=== PATIENT | male | born 1955 | race Caucasian/White ===

== ENCOUNTER 2021-08-27 10:15 | Emergency (ER) | payer OTHER, SELFPAY ==
[2021-08-27] VITALS (32 sets, daily range): BP systolic 95–117; BP diastolic 61–97; PULSE 80–108; RESP 12–29; TEMP 36.5; O2SAT 94–99
--- NOTE | 2021-08-27 10:24 | W.ED.GENAD ---
Discharge Plan Disposition Patient Disposition: HOME Condition: Stable Discharge Details Clinical Impression: Weight loss, Generalized weakness, Chronic pain Primary Care Provider: Oneal Guaman ED Provider: Dionicio Dean Home Meds and New Rx's Prescriptions: Continued lisinopril 20 mg tablet 20 mg PO DAILY 0RF glimepiride [Amaryl] 4 mg tablet 2 mg PO DAILY 0RF aspirin [Adult Low Dose Aspirin] 81 mg tablet,delayed release (DR/EC) 81 mg PO DAILY 0RF atorvastatin 40 mg tablet 40 mg PO TID 0RF hydroxyzine HCl 50 mg Tablet 50 mg PO .QHS 0RF cholecalciferol (vitamin D3) [Vitamin D3] 25 mcg (1,000 unit) Capsule 25 mcg PO DAILY 0RF oxycodone 10 mg Tablet 10 mg PO BID 0RF Discharge Instructions Instructions: Chronic Pain (ED), Weakness (ED) Additional Instructions: Work-up in the ER does not reveal any obvious emergent process but I do not have a clear source as to why you are feeling the way that you do. I was able to contact your primary care provider to make them aware of your ER visit today and work-up, and they will be happy to follow you as an outpatient. Please continue taking the medication set forth by your primary care provider and follow-up with the specialist that have been set up. Please watch for new or worsening symptoms and return to the ER for any concerns. Discharge Data Discharge Date/Time-TO BE ENTERED AT DEPARTURE: 08/27/21 13:57 Medical Decision Making This is a 65-year-old gentleman, reports past medical history of chronic pain, diabetes, hypertension, reporting just poor health worsening over the past year, ongoing chronic chest and abdominal pain back pain that radiates down to his leg, 60 pound weight gain, and this morning felt a little disoriented. Of note he has had this worked up through his primary care provider, specialist at [facility] in the ER at [facility]. Earlier this week she had his gabapentin and Metformin stop and began taking oxycodone. He did take an oxycodone this morning prior to his symptoms beginning. Prior to just 2 days ago he was narcotic na?ve I do question if some of what he was feeling this morning was secondary to his new medication. He is neurologically intact. Given his multitude of complaints, disorientation, chest, abdominal, back pain with weight loss, will obtain CT imaging of his head without contrast as well as CT imaging of his chest, abdomen, pelvis with contrast. We will also initiate a cardiac work-up including a single troponin and EKG given the duration of his symptoms. Blood glucose of 288. I was able to speak with the patient's primary care provider Dr. Brandt at 1121 who states that he does know the patient, he has had multiple vague complaints like this in his office and he is currently attempting to work them up and there is an outpatient EMG scheduled. He is participating in physical therapy and he has recently prescribed Percocet in attempt to better control his pain. He will be happy to follow him as an outpatient. Work-up in the ER including laboratory values, CT imaging were grossly unremarkable. Patient with some hyperglycemia but given his recent DC of the Metformin this is not surprising. This is being evaluated through his primary care provider office. I would not expect a glucose of 288 or 3072 presents with altered mental status. Patient with a lactate minimally elevated at 1.5, he is receiving [address] imaging is grossly unremarkable. Discussed benign work-up with patient and daughter. While we have the occluded multiple diagnoses today, I explained to them that I did not know the exact etiology of his symptoms. I did feel as though it was safe to be discharged from the ER continue his outpatient work-up. They are both comfortable with this plan and have no additional questions or concerns. He remained hemodynamically stable and neurologically intact. Strict discharge and return precautions were provided. This documentation was generated using [employer] dictation system, please disregard any oddities of phrase or misspellings. Imaging Data Radiologic Study: Attestation: I personally reviewed and interpreted this imaging study as follows: Imaging: CT Scan Radiologist's impression: Exam(s) CT CHEST/ABD/PEL W EXAM: CT CHEST/ABD/PEL W CLINICAL HISTORY: pain, 60 lb weight loss TECHNIQUE: CT examination of the chest, abdomen, and pelvis was performed with intravenous infusion of 100 cc of Omnipaque 350. COMPARISON: No exams were available for comparison FINDINGS: The lungs are clear. There is no pleural effusion seen. There is no mediastinal or hilar adenopathy. Pulmonary arteries are unremarkable with no evidence of pulmonary embolic disease. Thoracic aorta and major branches appear intact with no evidence of aneurysm or dissection. No bony abnormality seen in the thorax. The liver is normal appearance. Gallbladder and bile ducts are CT normal. No abnormality seen involving the spleen. Pancreas appears intact. The adrenals are unremarkable in appearance. The kidneys show no evidence of hydronephrosis or nephrolithiasis. Small incidental bilateral renal cysts noted. Probable left cortical renal scarring noted. Abdominal aorta and major visceral branches appear intact. No significant abdominal wall hernia seen. No significant abdominal or pelvic adenopathy. No focal bowel pathology. No evidence of appendicitis or diverticulitis. IMPRESSION: No evidence of acute process.. Radiologic Study #2: Attestation: I personally reviewed and interpreted this imaging study as follows: Imaging: CT Scan Radiologist's impression: Exam(s) CT HEAD WO EXAM: CT HEAD WO CLINICAL HISTORY: Disorientation. TECHNIQUE: Imaging Protocol: Axial computed tomography images with coronal and sagittal reformatted images were created and reviewed COMPARISON: No exams were available for comparison FINDINGS: The ventricular system is normal in appearance. No evidence of acute intracranial hemorrhage, mass effect, or midline shift. The orbital structures are unremarkable. The temporal bone structures appear intact. Calvarium: Normal. Visualized Paranasal sinuses/Mastoids: Clear. IMPRESSION: Normal cranial CT. Lab Data Lab results reviewed: Yes I reviewed the patient's lab results. Labs: Laboratory Tests Range/Units 08/27/21 08/27/21 08/27/21 10:55 10:55 10:55 WBC (4.4-10.8) 10^3/uL 6.08 RBC (4.36-5.78) 10^6/uL 4.96 Hgb (13.5-17.5) g/dL 14.8 Hct (40.0-50.0) % 43.4 MCV (80-95) fL 87.5 MCH (27.0-33.0) pg 29.8 MCHC (32.0-36.0) % 34.1 RDW (11.8-14.1) % 12.2 Plt Count (130-400) 10^3/uL 259 MPV (8.0-11.0) fL 9.5 Immature Gran % 0.2 Neutrophils % 57.7 Lymphocytes % 28.9 Monocytes % 10.7 Eosinophils % 2.3 Basophils % 0.2 Nucleated RBC % % 0 Absolute Neutrophils (1.2-6.7) 10^3/uL 3.51 Absolute Lymphocytes (1.2-3.4) 10^3/uL 1.76 Absolute Monocytes (0.1-0.8) 10^3/uL 0.65 Absolute Eosinophils (0.0-0.7) 10^3/uL 0.14 Absolute Basophils (0.0-0.2) 10^3/uL 0.01 VBG Lactate (0.6-1.4) mmol/L 1.5 H Sodium (136-145) mmol/L 136 Potassium (3.5-5.1) mmol/L 4.3 Chloride (98-107) mmol/L 100 Carbon Dioxide (21.0-32.0) mmol/L 28.5 Anion Gap (3-11) mmol/L 7.5 BUN (7-18) mg/dL 21 H Creatinine (0.70-1.30) mg/dL 0.8 Estimated GFR/1.73 m2 (mL/min/1.73m2) >= 60.00 Glucose (74-106) mg/dL 307 H Calcium (8.5-10.1) mg/dL 9.5 Total Bilirubin (0.2-1.0) mg/dL 0.3 AST (15-37) U/L 11 L ALT (16-63) U/L 23 Alkaline Phosphatase (46-116) U/L 64 Troponin I (<or=60) ng/L Total Protein (6.4-8.2) g/dL 7.0 Albumin (3.4-5.0) g/dL 3.9 Lipase (73-393) U/L 65 Urine Color (Yellow) Urine Clarity (Clear) Urine pH (5-8) Ur Specific [place] (1.005-1.025) Urine Protein (Negative) mg/dL Urine Ketones (Negative) mg/dL Urine Blood (Negative) Urine Nitrite (Negative) Urine Bilirubin (Negative) Urine Urobilinogen (Up TO 0.2) EU/dL Ur Leukocyte Esterase (Negative) Urine Glucose (Negative) mg/dL Range/Units 08/27/21 08/27/21 10:55 11:50 WBC (4.4-10.8) 10^3/uL RBC (4.36-5.78) 10^6/uL Hgb (13.5-17.5) g/dL Hct (40.0-50.0) % MCV (80-95) fL MCH (27.0-33.0) pg MCHC (32.0-36.0) % RDW (11.8-14.1) % Plt Count (130-400) 10^3/uL MPV (8.0-11.0) fL Immature Gran % Neutrophils % Lymphocytes % Monocytes % Eosinophils % Basophils % Nucleated RBC % % Absolute Neutrophils (1.2-6.7) 10^3/uL Absolute Lymphocytes (1.2-3.4) 10^3/uL Absolute Monocytes (0.1-0.8) 10^3/uL Absolute Eosinophils (0.0-0.7) 10^3/uL Absolute Basophils (0.0-0.2) 10^3/uL VBG Lactate (0.6-1.4) mmol/L Sodium (136-145) mmol/L Potassium (3.5-5.1) mmol/L Chloride (98-107) mmol/L Carbon Dioxide (21.0-32.0) mmol/L Anion Gap (3-11) mmol/L BUN (7-18) mg/dL Creatinine (0.70-1.30) mg/dL Estimated GFR/1.73 m2 (mL/min/1.73m2) Glucose (74-106) mg/dL Calcium (8.5-10.1) mg/dL Total Bilirubin (0.2-1.0) mg/dL AST (15-37) U/L ALT (16-63) U/L Alkaline Phosphatase (46-116) U/L Troponin I (<or=60) ng/L < 50 Total Protein (6.4-8.2) g/dL Albumin (3.4-5.0) g/dL Lipase (73-393) U/L Urine Color (Yellow) Yellow Urine Clarity (Clear) Clear Urine pH (5-8) 6.5 Ur Specific [place] (1.005-1.025) 1.020 Urine Protein (Negative) mg/dL Negative Urine Ketones (Negative) mg/dL Negative Urine Blood (Negative) Negative Urine Nitrite (Negative) Negative Urine Bilirubin (Negative) Negative Urine Urobilinogen (Up TO 0.2) EU/dL 0.2 Ur Leukocyte Esterase (Negative) Negative Urine Glucose (Negative) mg/dL >=1000 H ECG Data Attestation: I personally reviewed and interpreted this ECG (s) as follows: Interpretation: Sinus rhythm, ventricular rate of 82, no STEMI HPI General Mode of arrival: ambulatory. Date/Time Provider Initiated Documentation: 08/27/21 10:15. Limitations to Documentation: no limitations. Information obtained by: patient and family. HPI Narrative: This is a 65-year-old gentleman, past medical history of hypertension, diabetes, presenting to the ER today with multiple complaints that includes feeling disoriented this morning, that resolved completely. Patient states that he has had 1 year history of low back pain, chest pain, abdominal pain, weight loss of greater than 60 pounds, and he is concerned that he is going to . He is becoming increasingly frustrated because he has been seen by his primary care provider, ER in [facility], and at [facility]/specialist without any answers. He is set up for EMG for his ongoing back pain. Patient states that he saw his primary care provider earlier this week, they discontinued his Metformin and gabapentin and added on oxycodone. He denies recent illness or trauma. He denies headache, fever, neck pain, change in vision, shortness of breath, cough, nausea, vomiting, dysuria, hematuria, numbness, tingling, focal weakness. Related Data Home Medications Medication Instructions Recorded Confirmed aspirin 81 mg tablet,delayed 81 mg PO DAILY 07/28/21 08/27/21 release (Adult Low Dose Aspirin) atorvastatin 40 mg tablet 40 mg PO TID tab 07/28/21 08/27/21 glimepiride 4 mg tablet (Amaryl) 2 mg PO DAILY 07/28/21 08/27/21 lisinopril 20 mg tablet 20 mg PO DAILY 07/28/21 08/27/21 cholecalciferol (vitamin D3) 25 25 mcg PO DAILY 08/27/21 08/27/21 mcg (1,000 unit) capsule (Vitamin D3) hydroxyzine HCl 50 mg tablet 50 mg PO .QHS 08/27/21 08/27/21 oxycodone 10 mg tablet 10 mg PO BID 08/27/21 08/27/21 Allergies Allergy/AdvReac Type Severity Reaction Status Date / Time sulfamethoxazole Allergy Unverified 08/27/21 10:52 [From Bactrim] trimethoprim [From Bactrim] Allergy Unverified 08/27/21 10:52 Review of Systems Constitutional Constitutional: Denies chills, Denies fatigue, Denies fever(s), Denies headache(s) and Reports weakness (Generalized) Eyes Eyes: Denies change in vision ENT Ears, Nose, Mouth, and Throat: Denies dizziness, Denies headache(s) and Denies neck pain Cardiovascular Cardiovascular: Reports chest pain and Denies dyspnea Respiratory Respiratory: Denies cough, Denies dyspnea and Denies wheezing Gastrointestinal Gastrointestinal: Reports abdominal pain, Denies constipation, Denies diarrhea, Denies nausea and Denies vomiting Musculoskeletal Musculoskeletal: Reports back pain, Denies neck pain, Denies numbness and Denies tingling Integumentary/Breasts Skin/Breast: Denies rash Neurologic Neurologic: Denies dizziness, Denies headache(s), Denies numbness, Denies tingling and Reports weakness (Generalized) Endocrine Endocrine: Denies fatigue Hematologic/Lymphatic Hematologic/Lymphatic: Denies easy bleeding and Denies easy bruising Allergic/Immunologic Allergic/Immunologic: Denies wheezing PFSH All Active Problems Weight loss (Acute) Generalized weakness (Acute) Chronic pain (Chronic) Social History Smoking risk assessment performed?: No Alcohol Intake: never Substance use type: does not use Exam Const General: cooperative, healthy appearing, comfortable and no acute distress Orientation: alert, awake and oriented x3 HENMT Head: normal to inspection, normocephalic and atraumatic Face and sinus: normal facial exam Mouth: moist mucous membranes Eyes General: appearance normal, both eyes and all related structures Conjunctivae: conjunctivae normal Neck Neck: normal visual inspection, full ROM, trachea midline and supple Chest Chest: normal inspection of the chest and normal palpation of entire chest wall Resp Effort & Inspection: normal respiratory effort and able to speak in complete sentences Auscultation: clear to auscultation bilaterally Cardio Rate: regular rate Rhythm: regular rhythm GI Inspection: normal to inspection Palpation: soft and nontender Auscultation: normal bowel sounds Back/Spine/Pelvis Back: No back tenderness Skin General skin exam: no rashes or lesions noted Neuro General: patient alert, patient awake, patient oriented x3, moves all extremities and no focal motor deficits Cranial Nerves: CN's II-XI intact bilaterally Cognition: normal cognition Speech: speech normal Gait: normal gait Motor: muscle tone normal throughout, strength 5/5 throughout, no movement abnormalities noted and no fasciculations Sensory Exam: no sensory deficits noted Extrem General: normal to inspection, full ROM and capillary refill normal Psych Appearance: grossly normal Mental Status: mental status grossly normal
--- OUTSIDE RECORDS SUMMARY | 2021-08-27 10:47 | XMS_ITS | Encounter Summary ---
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 Brandt to reassess his progress with diabetes self-management and follow-up on his care coordination needs. Andre states, No one is helping me figure out what is going on with me. I felt this way for the past 8 months and I still don't have any answers. This author reinforced that Dr. Brandt has ordered several tests and i s trying to have Andre's CT scan and M RI orders transferred from [facility] to [facility] due to the prolonged wait time for imaging at [facility]. Andre verbalizes agreement and understanding. This author provided Bryn bird with the number to the [facility] Surgery Department and provided him with their hours of operation and advised him to call and schedule his appointment from the referral that was sent to [facility] o n 03/25/21 for further work up. Andre states that he will ask his daughter to assist him. This author praised Andre on his weight gain of 3 pounds since his last appointment and patient states that is he is wearing heavier clothing today. This author advised Andre to continue with his protein drinks and meals and patient verbalizes agreement and understanding. This author inquired about patient' s progress with diabetes self-management and Andre reports that his blood sugars are running 137-155 mg/dL during the day. This author reviewed Andre's medication list and reinforced that Dr. Brandt would like him to stop his Lisinopril an d Andre verbalizes agreement and understanding and was provided with an updated copy of his medication list. Patient denies any other needs or concerns at this time. This author made a plan to follow-up blanche Powell in two weeks by phone to reassess his progress with his care coordination needs and Andre verbalizes agreement and understanding. This author provided patient with this author?s contact info rmation and encouraged him to call with any questions or concerns related to diabetes self-management and his care coordination needs. This author updated and reviewed patient's Care Plan goals w shaheed Powell and patient denies the for a printed copy today. Andre verbalizes agreement and understanding of his plan of care. Katrin Doe, RN 1. Type 2 diabetes mellitus with out complication Discussion Note Goal: Manage my diabetes Status: Active Date Started: 12/08/2020 Barriers: Needs information regarding co ndition Interventions / Plans: - Take your medication as prescribed: Ta ke your pills twice a day in the morning and at bedtime as directed. Please stop taking Lisinopril. - Follow recommended diet: Drink your di abetic protein shakes twice a day as well as routine meals. - Incorporate lifestyle changes: Increas e your activity as tolerated - Check and record your blood sugar read ings: Please check your fasting blood sugar reading every morning before eating, drinking, or taking your morning medications and record your results on your [employer] d sugar log to track your progress after starting your medications. Please leave your glucometer kit next to detonator maker and check it while your waiting for your coffee to brew in the morning. - Receive an annual eye exam: Please viviana edule an eye exam if you have not had one yet this year. - Achieve an A1C of less than 7.0%: Your most recent A1c drawn on 04/30/21 for 9.4%. - Your follow-up plan of care is: Please attend your follow-up appointment with Dr. Brandt on 07/02/21 at 1:40 PM at [facility]. - [facility] in [place], [place] will call maxine tran to schedule your CT and MRI. Please call the [facility] Vascular Surgery Department at to reschedule your consultation appointment. Self-management goal: please review/brin g your Care Plan to your next visit; you can also refer to your Care Plan via the patient portal If patient follows this care plan the ex pected outcome will be to improve the management of your type 2 diabetes Patient educational handouts: No information available. Plan of Care Reminders Provider Appointments Opioid 09/08/2021 Faisal Brandt, Management 20 11:00AM ? Or 60 on or around Ruy Jacobs grady, 05/24/2028 Lab None ? ? recorded. Referral None ? ? recorded. Procedures None ? ? recorded. Surgeries None ? ? recorded. Imaging None ? ? recorded. Medications Name Start Date ? ? Asprin Ec Low Dose 81 mg tablet,delayed release ? Take 1 tablet every day by oral route in the morning. atorvastatin 40 mg tablet ? Take 1 tablet every day by oral route in the evening. Ensure oral liquid ? Drink 2 cans daily gabapentin 100 mg capsule ? Take 1 capsule 3 times a day by oral route for 5 days . glimepiride 2 mg tablet ? Take 1 tablet every day by oral route. Take a total of 6 mg every morning hydroxyzine HCl 50 mg tablet ? Take 1 tablet every day by oral route at bedtime for 30 days. metformin 1,000 mg tablet ? Take 1 tablet twice a day by oral route for 90 days. OneTouch Verio test strips 04/15/2021 Take 1 strip every [facility] oxy[facility]one 10 mg tablet ? Take 1 tablet twice a day by oral route as needed for 14 days. sodium chloride 1 gram tablet ? Take 1 tablet 3 times a day by oral route for 10 days . Vitamin D3 25 mcg (1,000 unit) capsule 04/15/2021 Take 1 capsule every day by oral route. Notes: reviewed 08/25/2021 Medications Administered None recorded. Vitals None recorded. Results Lab Results None recorded. Allergies Code Code System Name Reaction Severity Onset 016361 RxNorm Bactrim Myalgias (Muscle Severe ? Pain) Problems Name Status Onset Date Source ? Type 2 Diabetes Mellitus without Active 02/27/2018 ? Complication Gastroesophageal Reflux Disease Active 02/27/2018 ? Peripheral Vascular Disease Active 06/22/2021 ? Candidal Balanitis Active ? History Hyperlipidemia Active ? History Tobacco User Active ? History Nicotine Dependence Active ? History Hypertensive Disorder Active ? History Colitis Active ? History Cervical Radiculopathy Active ? History Procedures Date Name Performed by ? 05/04/2021 Upper Endoscopy (Egd) with Information n ot available Colonoscopy (Surg) 05/04/2021 Colonoscopy Information not avai lable Notes: Repeat in 7 years per path [id number]: severe colitis of descending colon with biopsy pathology consistent with ischemic event. Suspected infectious in etiology 06/13/2008 Lesion Excision Information not avai lable Notes: right lower extremity abscess 06/12/2006 Hernia Repair Inguinal Information not a vailable 05/18/2021 MRI, Cervical Spine, W/o Contrast [facility] (Internal) [address] [place] [address] (Work Place) 05/18/2021 CT, Angiogram, Abdominal Aorta, W/ [facility] (Internal) Runoff, W/wo Contrast [address] [place] [address] (Work Place) 05/18/2021 US, Echocardiogram, Transthoracic, [facility] (Internal) Complete [address] [place] [address] (Work Place) Vaccine List Vaccine Type COVID-19 vaccine, vector-nr, [id number], PF , 0.5 mL ([employer]) 10/06/2020 influenza, high-dose, quadrivalent 03/04/2020?0.7 mL influenza, injectable, quadrivalent, pre servative free 06/03/2016?0.5 mL 02/27/2018?0.5 mL influenza, seasonal, injectable 06/12/2012 influenza, seasonal, injectable, preserv ative free 03/15/2010?0.5 mL 04/28/2011 05/15/2012?0.5 mL pneumococcal conjugate PCV 13 03/04/2020?0.5 mL pneumococcal polysaccharide [id number] 06/12/2008 Tdap 03/02/2010?0.5 mL zoster recombinant 10/30/2020?0.5 mL Social History Tobacco Smoking Status Heavy Tobacco Smoker (1 Notes: 1 p pd, 50+ years pack per day) Do you have difficulty walking Y Notes: Legs are weak, or climbing stairs? painful Are you able to walk? YESWOREST Are you currently employed? N Are you able to care for Y yourself? Have you used IV drugs? N Are you blind or do you have N Notes: w ears reading difficulty seeing? glasses Do you have smoke and carbon Y monoxide detectors in your home? Do you have transportation N difficulties? What is your code status? 0 Do you have difficulty doing N errands alone? How much tobacco do you chew? none What was the date of your most 08/25/2021 recent tobacco screening? Do you or have you ever used Never used electronic e-cigarettes or vape? cigarettes Do you have an advanced Y Notes: Advanc e directive? Directive 02/27/2015 Do you feel safe at home? Y What is your exercise level? None Live alone or with others? with others What is your level of alcohol Occasional Notes: very little consumption? Which of your hands is dominant? Right Animal exposure? Y Do you or have you ever used Never used smokeless smokeless tobacco? tobacco Language Difficulties No Are you deaf or do you have N serious difficulty hearing? Do you have difficulty Y Notes: occasi onally, concentrating, remembering or daughter h elps pt as making decisions? needed Hard of hearing or deaf in one Y Notes: mild deficit or both ears? What is your level of caffeine Heavy Notes: tons 10-15 consumption? big cups Have you recently traveled N abroad? Do you have difficulty dressing N or bathing? Have you fallen in the last 3 N months? Functional Status Do you have difficulty Yes concentrating, remembering or making decisions?? Do you have difficulty Yes walking or climbing stairs?? Past Encounters 06/01/2021 Type 2 Diabetes Mellitus without Complic ation Katrin Doe, RN: [address] [place] [phone], Ph. 06/01/2021 Hypertensive Disorder; Spinal Stenosis i n Cervical Region with Myelopathy; Intermittent Claudication; Hyponatremia; Type II Diabetes Mellitus Uncontrolled; Unintentional Weight Loss Faisal Brandt MD: [address] [place] [phone], Ph. 05/18/2021 Type 2 Diabetes Mellitus without Complic ation Katrin Doe, RN: [address] [place] [phone], Ph. 05/18/2021 Hypertensive Disorder; Hyperlipidemia; I nfluenza Vaccine Needed; Spinal Stenosis in Cervical Region with Myelopathy; Intermittent Claudication; Hyponatremia; Type II Diabetes Mellitus Uncontrolled; Unintentional Weight Loss Faisal Brandt MD: [address] [place] [phone], Ph. History of Present Illness None recorded. Review of Systems None recorded. Physical Exam None recorded.
--- OUTSIDE RECORDS SUMMARY | 2021-08-27 10:47 | XMS_ITS ---
:1955 Author Care Team Providers Name Role Phone SIERRA ROSS [employer] Car[employer] Salesperson [phone] RUY MAHMOOD MD General Surgeon [phone] FAISAL BRANDT MD Primary Care Provider [phone] Allergies Code Code System Name Reaction Severity Status Onset 816735 RxNorm Bactrim Myalgias Severe Active ? (Muscle Pain) Medications Name Status Start Date Stop Date ? ? aspirin 81 mg chewable tablet Completed ? Chew 1 tablet every day by oral route. Asprin Ec Low Dose 81 mg tablet,delayed release Active ? Not available Take 1 tablet every day by oral route in the morning. atorvastatin 10 mg tablet Completed ? 2018 atorvastatin 40 mg tablet Active ? Not av ailable Take 1 tablet every day by oral route in the evening. Bactrim DS 800 mg-160 mg tablet Completed 03/04/2010 03/04/2010 1 (one) Tablet: Twice daily cephalexin 500 mg capsule Completed 03/04/20102009 1 (one) Capsule: three times daily cilostazol 100 mg tablet Completed ? 022 Take 1 tablet twice a day by oral route for 14 days. Cipro 500 mg tablet Completed 03/05/2015 03/11/2015 1 (one) Tablet: two times daily ciprofloxacin 250 mg tablet Completed 02/27/201502/11 1 (one) Tablet: two times daily clindamycin HCl 150 mg capsule Completed 05/23/2010 1 07/29/2009 1 (one) Cap: every six hours clindamycin HCl 300 mg capsule Completed 11/05/2012 0 11/12/2012 1 Capsule: every 6 hours as needed clotrimazole 1 % topical cream Completed 02/10/2015 1 1 (one) Cream Cream: abid Debrox 6.5 % ear drops Completed ? 1 INSTILL 5 DROPS INTO AFFECTED EAR(S) BY OTIC ROUTE 2 TIMES PER DAY INSTILL 5 DROPS INTO AFFECTED EAR(S) BY OTIC ROUTE 2 TIMES PER DAY Ensure oral liquid Active ? Not available Drink 2 cans daily gabapentin 100 mg capsule Active ? Not av ailable Take 1 capsule 3 times a day by oral route for 5 days. glimepiride 1 mg tablet Completed 03/06/2015 06/03/20 16 1 (one) Tablet Tablet: qd - daily glimepiride 2 mg tablet Active ? Not avai lable Take 1 tablet every day by oral route. Take a total of 6 mg every morning glimepiride 4 mg tablet Completed ? 12/30/19 21 TAKE ONE TABLET BY MOUTH EVERY MORNING Glucophage XR 500 mg tablet,extended release Completed 09/04/2014 4 Tablet ER 24HR: at bedtime hydroxyzine HCl 50 mg tablet Active ? Not available Take 1 tablet every day by oral route at bedtime for 30 days. Januvia 100 mg tablet Completed 08/08/2016 09/13/2017 1 (one) Tablet: once daily Jardiance 10 mg tablet Completed ? 0 Take 1 tablet every day by oral route for 30 days. Keflex 750 mg capsule Completed 06/17/2008 06/27/2008 1 (one) Capsule: three times daily for infection until gone lisinopril 20 mg tablet Completed ? 06/01/20 21 Take 0.5 tablets every day by oral route. Medrol (Wei) 4 mg tablets in a dose pack Completed ? 02/16/2021 Take 1 dose pk by oral route. meloxicam 15 mg tablet Completed 04/15/2021 1 Take 1 tablet every day by oral route. metformin 1,000 mg tablet Active ? Not av ailable Take 1 tablet twice a day by oral route for 90 days. metformin 500 mg tablet Completed 06/17/2008 04/10/20 09 1 (one) Tablet: two times daily for your sugar metformin ER 1,000 mg tablet,extended release 24hr Completed 02/10/2015 09/13/2017 1 (one) Tablet ER 24HR Tablet Tablet ER 24HR: every morning metronidazole 250 mg tablet Completed 03/06/2015 09/ 1 (one) Tablet: three times daily naproxen 500 mg tablet Completed 04/15/2021 1 Take 1 tablet twice a day by oral route. Do not take ibuprofen if taking this medication nicotine 21 mg/24 hr daily transdermal patch Completed 06/27/2008 1 (one) Patch 24HR: daily to help keep you from smoking OneTouch Verio test strips Active 04/15/2021 Not a vailable Take 1 strip every day by miscell. route in the morning. oxycodone 10 mg tablet Active ? Not avail able Take 1 tablet twice a day by oral route as needed for 14 days. prednisone 20 mg tablet Completed ? 02/20/20 Prevacid 30 mg capsule,delayed release Completed 9 04/10/2009 1 (one) Cap DR: Daily sodium chloride 1 gram tablet Active ? No t available Take 1 tablet 3 times a day by oral route for 10 days. triamcinolone acetonide 0.1 % topical cream Completed 08/1102/10/2015 apply Cream: as needed- see directions for compounding Trulicity 0.75 mg/0.5 mL subcutaneous pen injector Completed ? 02/16/2021 Inject 0.5 mL every week by subcutaneous route for 14 days. Trulicity 1.5 mg/0.5 mL subcutaneous pen injector Completed ? 04/15/2021 Inject 1.5 mg every week by subcutaneous route for 30 days. valacyclovir 1 gram tablet Completed ? 10/30 Take 1 tablet 3 times a day by oral route for 7 days. Valium 5 mg tablet Completed ? 02/16/2021 Take 1 tablet 3 times a day by oral route for 3 days. Tale with over the counter pain medication such as tylenol or i buprofen. Vitamin B-12 500 mcg tablet Completed 06/17/200803/14 1 (one) Tablet: daily to build up blood Vitamin D Completed ? 04/15/2021 once daily Vitamin D3 25 mcg (1,000 unit) capsule Active Not available Take 1 capsule every day by oral route. Notes: reviewed 08/25/2021 Problems Name Status Onset Date Source ? Type 2 Diabetes Mellitus without Active 02/27/2018 ? Complication Gastroesophageal Reflux Disease Active 02/27/2018 ? Peripheral Vascular Disease Active 06/22/2021 ? Candidal Balanitis Active ? History Hyperlipidemia Active ? History Overweight Unknown ? History Tobacco User Active ? History Nicotine Dependence Active ? History Hypertensive Disorder Active ? History Colitis Active ? History Intestinal Obstruction Unknown ? History Arthropathy Unknown ? History Cervical Radiculopathy Active ? History Congenital Ichthyosis of Skin Unknown ? Hi story Adult Health Examination Unknown ? History Hyperglycemia Due to Type 2 Diabetes Unknown ? History Mellitus Procedure by Method Unknown ? History Kidney Disease Unknown ? History Procedures Date Name Performed by ? 05/04/2021 Upper Endoscopy (Egd) with Colonoscopy I nformation not available (Surg) 05/04/2021 Colonoscopy Information not avai lable Notes: Repeat in 7 years per path [id number]: severe colitis of descending colon with biopsy pathology consistent with ischemic event. Suspected infectious in etiology 06/13/2008 Lesion Excision Information not avai lable Notes: right lower extremity abscess 06/12/2006 Hernia Repair Inguinal Information not a vailable 01/29/2021 MRI, Lumbar Spine, W/o Contrast [facility] (Internal) [address] [place] [address] (Work Place) 04/06/2021 XR, Chest, 2 View [facility] (Internal) [address] [place] [address] (Work Place) 04/12/2021 LDCT, Chest, for Lung Cancer Screening [facility] Radiology (Internal) [address] [place] [id number] (Work Place) 05/18/2021 MRI, Cervical Spine, W/o Contrast Radiology (Internal) [address] [address] [address] (Work Place) 05/18/2021 CT, Angiogram, Abdominal Aorta, W/ Radiology (Internal) Runoff, W/wo Contrast [address] [place] [address] [address] (Work Place) 05/18/2021 US, Echocardiogram, Transthoracic, Radiology (Internal) Complete [address] [place] [address] [id number] (Work Place) 06/16/2021 US, Retroperitoneum [facility] (Internal) [address] [place] [address] [address] (Work Place) 06/17/2021 US, Renal [facility] ([facility]) [address] [place], [place] [id number] (Work Place) Results Lab Results Date Name Specimen Result Interpretation Description Value Range Status Address ? 08/25/2021 Lactic Acid, S High La 3.7 mmol/L 0.7-2.1 Fi nal [place] Blood mmol/L [facility] [address] 08/25/2021 BMP, Serum S High g/r 359 mg/dL 74-106 Final [place] or Plasma mg/dL [facility] ([facility]) : [address] ? ? S High Bun 19 mg/dL 7-18 Final [place] mg/dL [facility] ([facility]) : [address] ? ? S ? Crea 1.0 mg/dL 0.7-1.3 Final [place] mg/dL [facility] ([facility]) : [address] ? ? S ? Ca 8.9 mg/dL 8.5-10.1 Final [place] mg/dL [facility] ([facility]) : [address] ? ? S Low Na 132 mmol/L 136-145 Final [place] mmol/L [facility] ([facility]) : [address] ? ? S ? K 4.2 mmol/L 3.5-5.1 Final [place] mmol/L [facility] ([facility]) : [address] ? ? S ? Cl 98 mmol/l 98-107 Final [place] mmol/l [facility] ([facility]) : [address] ? ? S ? Tco2 22.6 mmol/L 21.0-32.0 Final No rth mmol/L [facility] (Internal) : [address] 07/23/2021 HbA1C BLD High Ha1C 9.4 % 4.0-6.0 % Final [facility] (Hemoglobin Count ry a1C), Blood [facility] (Internal) : [address] 07/23/2021 Lipid Panel, S ? Chol 104 mg/dL 0-200 Nadine l [place] Serum mg/dL [facility] ([facility] : [address] t ? ? S ? Trig 120 mg/dL 0-150 Final [place] mg/dL [facility] ([facility]) : [address] t ? ? S ? Hdl 45 mg/dL 40-60 Final [place] mg/dL [facility] ([facility]) : [address] ? ? S ? Ldl 35 mg/dL 0-130 Final [place] mg/dL [facility] ([facility]) : [address] t 07/23/2021 CMP, Serum S High g/r 198 mg/dL 74-106 Final [place] or Plasma mg/dL [facility] ([facility]) : [address] ? ? S ? Bun 17 mg/dL 7-18 Final [place] mg/dL [facility] ([facility]) : [address] ? ? S ? Crea 0.8 mg/dL 0.7-1.3 Final [place] mg/dL [facility] ([facility] : [address] ? ? S ? Ca 9.4 mg/dL 8.5-10.1 Final [place] mg/dL [facility] ([facility]) : [address] ? ? S Low Na 128 mmol/L 136-145 Final [facility] mmol/L [facility] ([facility]) : [address] t ? ? S ? K 4.7 mmol/L 3.5-5.1 Final [place] mmol/L [facility] ([facility]) : [address] t ? ? S Low Cl 93 mmol/l 98-107 Final [place] mmol/l [facility] ([facility]) : [address] t ? ? S ? Tco2 27.3 mmol/L 21.0-32.0 Final No rth mmol/L [facility] (Internal) : [address] ? ? S ? Tp 6.6 g/dL 6.4-8.2 Final [place] g/dL [facility] ([facility]) : [address] ? ? S ? Alb 4.1 g/dL 3.4-5.0 Final [place] g/dL [facility] ([facility]) : [address] ? ? S ? Tbil 0.30 mg/dL 0.20-1.00 Final [facility] mg/dL [facility] ([facility]) : [address] ? ? S ? Alp 65 U/L 46-116 Final [place] U/L [facility] : [address] ? ? S ? Alt 36 U/L 16-63 U/L Final [place] (Sgpt) [facility] (Internal) : [address] ? ? S ? Ast 15 U/L 15-37 U/L Final [place] (Sgot) [facility] (Internal) : [address] 05/18/2021 CRP, High S ? Rcrp 0.33 mg/L 0.00-3.00 Nadine l [place] Sensitivity, mg/L Coun try Serum or Hospital Lab Plasma (Internal) : [address] 05/18/2021 CMP, Serum S High g/r 227 mg/dL 74-106 Final [place] or Plasma mg/dL [facility] ([facility] : [address] t ? ? S ? Bun 15 mg/dL 7-18 Final [place] mg/dL [facility] ([facility]) : [address] t ? ? S Low Crea 0.6 mg/dL 0.7-1.3 Final [place] mg/dL [facility] (Internal) : [address] t ? ? S ? Ca 9.4 mg/dL 8.5-10.1 Final [facility] mg/dL [facility] ([facility] : [address] t ? ? S Low Na 132 mmol/L 136-145 Final [place] mmol/L [facility] (Internal) : [address] t ? ? S ? K 4.9 mmol/L 3.5-5.1 Final [place] mmol/L [facility] (Internal) : [address] t ? ? S Low Cl 94 mmol/l 98-107 Final [place] mmol/l [facility] (Internal) : [address] t ? ? S ? Tco2 31.0 mmol/L 21.0-32.0 Final No rth mmol/L [facility] ([facility] : [address] ? ? S ? Tp 6.9 g/dL 6.4-8.2 Final [place] g/dL [facility] (Internal) : [address] t ? ? S ? Alb 4.1 g/dL 3.4-5.0 Final [place] g/dL [facility] (Internal) : [address] ? ? S ? Tbil 0.30 mg/dL 0.20-1.00 Final Nor [facility] mg/dL [facility] (Internal) : [address] t ? ? S ? Alp 62 U/L 46-116 Final [place] U/L [facility] (Internal) : [address] ? ? S ? Alt 35 U/L 16-63 U/L Final [place] (Sgpt) [facility] (Internal) : [address] ? ? S Low Ast 13 U/L 15-37 U/L Final [place] (Sgot) [facility] (Internal) : [address] t 05/18/2021 ESR BLD ? Esr 1 mm/h 0-20 mm/h Final [place] (Erythrocyte Coun try Sedimentatio Hosp ital Lab n Rate), (Interna l): Blood [address] 05/04/2021 Pathology TISS ? Report (see below) ? Nadine l [facility] (Internal) : [address] t 04/30/2021 CBC W/ Auto BLD ? Wbc 7.2 10*3/uL 5.0-10.0 F inal [place] Diff 10*3/uL [facility] (Internal) : [address] ? ? BLD ? Rbc 5.02 10*6/uL 4.60-6.00 Final N orth 10*6/uL [facility] (Internal) : [address] ? ? BLD ? Hgb 14.9 g/dL 14.0-18.0 Final Nort h g/dL [facility] (Internal) : [address] ? ? BLD ? Hct 44.1 % 41.0-51.[address] [facility] (Internal) : [address] ? ? BLD ? Mcv 87.8 fL 80.0-96.0 Final [facility] L [facility] (Internal) : [address] ? ? BLD ? Mch 29.7 pg 26.0-32.0 Final [facility] (Internal) : [address] ? ? BLD ? Mchc 33.8 g/dL 31.0-35.0 [facility] (Internal) : [address] ? ? BLD ? Rdw 13.0 % 11.5-14.[address] [facility] (Internal) : [address] ? ? BLD ? Plt 310 10*3/uL 130-450 Final Nort h 10*3/uL [facility] (Internal) : [address] ? ? BLD ? Anc 4.67 10*3/uL ? Final [facility] (Internal) : [address] ? ? BLD ? Nlr 2.59 0.00-3.20 Final L ab (Internal) : [address] ? ? BLD ? Neutro 65.2 % 40.0-75.[address] [facility] (Internal) : [address] ? ? BLD ? Lymph 25.1 % 20.0-50.[address] [facility] (Internal) : [address] ? ? BLD ? [place] 8.5 % 2.0-10.[address] [facility] (Internal) : [address] ? ? BLD Low Eos 0.6 % 1.0-6.0 % Final L ab (Internal) : [address] ? ? BLD ? Baso 0.3 % 0.0-1.0 % Final L ab (Internal) : [address] ? ? BLD ? Ig 0.3 % 0.0-0.9 % Final [facility] : [address] t 04/30/2021 HbA1C BLD High Ha1C 9.4 % 4.0-6.0 % Final [place] (Hemoglobin Count ry a1C), Blood Hospi [facility] Lab (Internal) : [address] t 04/30/2021 CMP, Serum S High g/r 241 mg/dL 74-106 Final [place] or Plasma mg/dL [facility] ([facility] : [address] ? ? S High Bun 22 mg/dL 7-18 Final [facility] mg/dL [facility] ([facility]) : [address] t ? ? S ? Crea 0.9 mg/dL 0.7-1.3 Final [place] mg/dL [facility] ([facility]) : [address] ? ? S ? Ca 9.7 mg/dL 8.5-10.1 Final [place] mg/dL [facility] ([facility]) : [address] ? ? S Low Na 133 mmol/L 136-145 Final [place] mmol/L [facility] ([facility]) : [address] ? ? S ? K 4.9 mmol/L 3.5-5.1 Final [facility] mmol/L [facility] ([facility]) : [address] t ? ? S Low Cl 94 mmol/l 98-107 Final [place] mmol/l [facility] (Internal) : [address] ? ? S ? Tco2 27.4 mmol/L 21.0-32.0 Final No rth mmol/L [facility] (Internal) : [address] ? ? S ? Tp 6.8 g/dL 6.4-8.2 Final [facility] g/dL [facility] ([facility]) : [address] ? ? S ? Alb 4.1 g/dL 3.4-5.0 Final [facility] g/dL [facility] ([facility]) : [address] ? ? S ? Tbil 0.30 mg/dL 0.20-1.00 Final [facility] mg/dL [facility] ([facility] : [address] ? ? S ? Alp 58 U/L 46-116 Final [place] U/L [facility] (Internal) : [address] ? ? S ? Alt 29 U/L 16-63 U/L Final [place] (Sgpt) [facility] (Internal) : [address] t ? ? S Low Ast 11 U/L 15-37 U/L Final [place] (Sgot) [facility] (Internal) : [address] 04/30/2021 Lipid Panel, S ? Chol 134 mg/dL 0-200 Nadine l [place] Serum mg/dL [facility] (Internal) : [address] t ? ? S ? Trig 90 mg/dL 0-150 Final [place] mg/dL [facility] (Internal) : [address] ? ? S ? Hdl 44 mg/dL 40-60 Final [place] mg/dL [facility] (Internal) : [address] t ? ? S ? Ldl 72 mg/dL 0-130 Final [place] mg/dL [facility] (Internal) : [address] 04/30/2021 PSA, Serum S ? PSA 0.7 NG/mL 0.0-4.0 Final [place] or Plasma Scrn NG/mL [facility] (Internal) : [address] 04/12/2021 CBC W/ Auto BLD ? Wbc 7.9 10*3/uL 5.0-10.0 F inal [place] Diff 10*3/uL [facility] (Internal) : [address] ? ? BLD ? Rbc 5.84 10*6/uL 4.60-6.00 Final N orth 10*6/uL [facility] (Internal) : [address] ? ? BLD ? Hgb 17.4 g/dL 14.0-18.0 Final Nort h g/dL [facility] (Internal) : [address] ? ? BLD ? Hct 49.0 % 41.0-51.0 Final [place] % [facility] (Internal) : [address] ? ? BLD ? Mcv 83.9 fL 80.0-96.0 Final [facility] L ab (Internal) : [address] ? ? BLD ? Mch 29.8 pg 26.0-32.0 Final [facility] L [facility] (Internal) : [address] ? ? BLD High Mchc 35.5 g/dL 31.0-35.0 [facility] (Internal) : [address] ? ? BLD ? Rdw 12.3 % 11.5-14.[address] [facility] (Internal) : [address] ? ? BLD ? Plt 294 10*3/uL 130-450 Final Nort h 10*3/uL [facility] (Internal) : [address] ? ? BLD ? Anc 5.00 10*3/uL ? Final Nort h [facility] (Internal) : [address] ? ? BLD ? Nlr 2.49 0.00-3.20 Final L ab (Internal) : [address] ? ? BLD ? Neutro 63.6 % 40.0-75.[address] [facility] (Internal) : [address] ? ? BLD ? Lymph 25.6 % 20.0-50.[address] [facility] (Internal) : [address] ? ? BLD ? [place] 9.6 % 2.0-10.[address] [facility] (Internal) : [address] ? ? BLD Low Eos 0.4 % 1.0-6.0 % Final L ab (Internal) : [address] ? ? BLD ? Baso 0.3 % 0.0-1.0 % Final L ab (Internal) : [address] ? ? BLD ? Ig 0.5 % 0.0-0.9 % Final L ab (Internal) : [address] 04/12/2021 Ketones, S High Ketone 0.9 mmol/L 0.0-0.5 Final [place] Quantitative (Bhb mmol/L Coun try , Blood Quant) Hospital Lab (Internal) : [address] t 04/12/2021 CMP, Serum S High g/r 211 mg/dL 74-106 Final [place] or Plasma mg/dL [facility] ([facility] : [address] ? ? S High Bun 26 mg/dL 7-18 Final [facility] mg/dL [facility] ([facility] : [address] t ? ? S ? Crea 1.0 mg/dL 0.7-1.3 Final [facility] mg/dL [facility] ([facility] : [address] t ? ? S ? Ca 9.8 mg/dL 8.5-10.1 Final [place] mg/dL [facility] (Internal) : [address] ? ? S Low Na 128 mmol/L 136-145 Final [place] mmol/L [facility] (Internal) : [address] ? ? S ? K 4.7 mmol/L 3.5-5.1 Final [facility] mmol/L [facility] ([facility] : [address] ? ? S Low Cl 91 mmol/l 98-107 Final [place] mmol/l [facility] (Internal) : [address] ? ? S ? Tco2 27.9 mmol/L 21.0-32.0 Final No rth mmol/L [facility] ([facility]) : [address] ? ? S ? Tp 8.0 g/dL 6.4-8.2 Final [facility] g/dL [facility] ([facility] : [address] ? ? S ? Alb 4.6 g/dL 3.4-5.0 Final [facility] g/dL [facility] ([facility]) : [address] ? ? S ? Tbil 0.60 mg/dL 0.20-1.00 Final [facility] mg/dL [facility] ([facility]) : [address] ? ? S ? Alp 73 U/L 46-116 Final [place] U/L [facility]) : [address] ? ? S ? Alt 29 U/L 16-63 U/L [facility] (Sgpt) [facility] (Internal) : [address] ? ? S ? Ast 25 U/L 15-37 U/L [facility] (Sgot) [facility] (Internal) : [address] 04/12/2021 Lactic Acid, S ? La 0.8 mmol/L 0.7-2.1 Fi nal [place] Blood mmol/L [facility]Internal[facility] [address] [facility] 04/12/2021 HbA1C BLD High Ha1C 8.9 % 4.0-6.0 % Final [facility] (Hemoglobin Count ry a1C), Blood Hospi [facility] Lab (Internal[facility] [address] [facility]/12[facility]21 CRP, High S ? Rcrp 0.29 mg/L 0.00-3.00 [facility]L Coun try Serum or Hospital Lab Plasma (Internal) : [address] 04/12/2021 Respiratory FLUID ? Final microbiology ? [facility] Virus Panel results Coun try Hospital L ab (Internal) : [address] 04/12/2021 Urinalysis, UR ? UA-col yellow pale Final [place] Dipstick, or yellow [facility] ital Lab (Internal) : [address] ? ? UR ? UA-barbara clear clear Final [facility] L ab (Internal) : [address] ? ? UR ? UA-spe 1.025 1.003-1.0 Final [place] c Grav 35 [facility] L ab (Internal) : [address] ? ? UR ? UA-pH 5.5 [pH] 4.6-8.0 Final [place] [pH] [facility] L [facility] (Internal) : [address] ? ? UR ? UA-skyler negative negative Final [place] k Est [facility] (Internal) : [address] ? ? UR ? UA-nit negative negative Final [place] rite [facility] (Internal) : [address] ? ? UR ? UA-pro negative negative Final [facility] (Internal) : [address] ? ? UR ABNORMAL UA-glu 4+ negative Final [facility] L ab (Internal) : [address] ? ? UR ? UA-ket negative negative Final [facility] L ab (Internal) : [address] ? ? UR ? UA-uro normal normal Final [facility] L [facility] (Internal) : [address] ? ? UR ? UA-stephanie negative negative Final [place] i [facility] (Internal) : [address] ? ? UR ? UA-blo negative negative Final [facility] L ab (Internal) : [address] t 04/06/2021 CBC W/ Auto BLD ? Wbc 7.3 10*3/uL 5.0-10.0 F inal [place] Diff 10*3/uL [facility] (Internal) : [address] ? ? BLD ? Rbc 5.30 10*6/uL 4.60-6.00 Final N orth 10*6/uL [facility] (Internal) : [address] ? ? BLD ? Hgb 15.5 g/dL 14.0-18.0 Final Nort h g/dL [facility] L [facility] (Internal) : [address] ? ? BLD ? Hct 45.2 % 41.0-51.[address] [facility] (Internal) : [address] ? ? BLD ? Mcv 85.3 fL 80.0-96.0 Final [facility] (Internal) : [address] ? ? BLD ? Mch 29.2 pg 26.0-32.0 Final [facility] L ab (Internal) : [address] ? ? BLD ? Mchc 34.3 g/dL 31.0-35.0 Final Nort h g/dL [facility] (Internal) : [address] ? ? BLD ? Rdw 12.2 % 11.5-14.[address] [facility] (Internal) : [address] ? ? BLD ? Plt 268 10*3/uL 130-450 Final Nort h 10*3/uL [facility] L [facility] (Internal) : [address] ? ? BLD ? Anc 4.51 10*3/uL ? Final Nort h [facility] (Internal) : [address] ? ? BLD ? Nlr 2.24 0.00-3.20 Final [facility] (Internal) : [address] ? ? BLD ? Neutro 62.2 % 40.0-75.[address] [facility] (Internal) : [address] ? ? BLD ? Lymph 27.7 % 20.0-50.[address] [facility] L ab (Internal) : [address] Dr t ? ? BLD ? [place] 9.0 % 2.0-10.[address] [facility] L ab (Internal) : [address] t ? ? BLD Low Eos 0.4 % 1.0-6.0 % Final L ab (Internal) : [address] t ? ? BLD ? Baso 0.3 % 0.0-1.0 % Final [facility] (Internal[facility] : [address] t ? ? BLD ? Ig 0.4 % 0.0-0.9 % Final [facility] ([facility] : [address] t 04/06/2021 CMP, Serum S High g/r 310 mg/dL 74-106 Final [facility] or Plasma mg/dL [facility] L ab (Internal) : [address] t ? ? S ? Bun 17 mg/dL 7-18 Final [facility] mg/dL [facility] L ab (Internal) : [address] t ? ? S ? Crea 0.9 mg/dL 0.7-1.3 Final [facility] mg/dL [facility] L ab (Internal) : [address] t ? ? S ? Ca 9.4 mg/dL 8.5-10.1 Final [facility] mg/dL [facility] L ab (Internal) : [address] t ? ? S Low Na 133 mmol/L 136-145 Final [facility] mmol/L [facility] : [address] ? ? S ? K 4.8 mmol/L 3.5-5.1 Final [facility] mmol/L [facility] ([facility] : [address] t ? ? S Low Cl 96 mmol/l 98-107 Final [facility] mmol/l [facility] (Internal) : [address] ? ? S ? Tco2 29.5 mmol/L 21.0-32.0 Final No rth mmol/L [facility] ([facility]) : [address] t ? ? S ? Tp 7.2 g/dL 6.4-8.2 Final [facility] g/dL [facility] ([facility]) : [address] t ? ? S ? Alb 4.0 g/dL 3.4-5.0 Final [facility] g/dL [facility] ([facility] : [address] t ? ? S ? Tbil 0.40 mg/dL 0.20-1.00 Final Nor th mg/dL [facility] ([facility] : [address] t ? ? S ? Alp 66 U/L 46-116 Final [facility] U/L [facility] L ab (Internal) : [address] t ? ? S ? Alt 24 U/L 16-63 U/L Final [place] (Sgpt) [facility] L ab (Internal) : [address] t ? ? S Low Ast 11 U/L 15-37 U/L Final [place] (Sgot) [facility] L ab (Internal) : [address] 04/06/2021 Thyroid S ? Tsh 1.09 uIU/mL 0.36-3.74 Nadine l [place], uIU/mL [facility] (Internal) : [address] 04/06/2021 HbA1C BLD High Ha1C 10.0 % 4.0-6.0 % Final Nor th (Hemoglobin Count ry a1C), [facility] (Internal) : [address] 02/16/2021 CMP, Serum S High g/r 276 mg/dL 74-106 Final [facility] or Plasma mg/dL [facility] ([facility]) : [address] t ? ? S High Bun 22 mg/dL 9-20 Final [facility] mg/dL [facility] ([facility] : [address] t ? ? S ? Crea 0.90 mg/dL 0.66-1.25 Final Nor th mg/dL [facility] ([facility]) : [address] t ? ? S ? Ca 9.6 mg/dL 8.4-10.2 Final [facility] mg/dL [facility] ([facility]) : [address] t ? ? S Low Na 130 mmol/L 137-145 Final [facility] mmol/L [facility] (Internal) : [address] t ? ? S ? K 4.5 mmol/L 3.5-5.1 Final [facility] mmol/L [facility] (Internal) : [address] t ? ? S Low Cl 92 mmol/L 98-107 Final [facility] mmol/L [facility] ([facility]) : [address] t ? ? S ? Tco2 26.0 mmol/L 22.0-30.0 Final No rth mmol/L [facility] (Internal) : [address] t ? ? S ? Tp 6.8 g/dL 6.3-8.2 Final [facility] g/dL [facility] ([facility] : [address] t ? ? S ? Alb 4.2 g/dL 3.5-5.0 Final [facility] g/dL [facility] ([facility]) : [address] t ? ? S ? Tbil 0.2 mg/dL 0.2-1.3 Final [facility] mg/dL [facility] (Internal) : [address] t ? ? S ? Alp 57 U/L 38-126 Final [facility] U/L [facility] (Internal) : [address] t ? ? S Low Alt 19 U/L 21-72 U/L Final [facility] (Sgpt) [facility] : [address] t ? ? S ? Ast 21 U/L 17-59 U/L Final [place] (Sgot) [facility] L ab (Internal) : [address] 02/16/2021 HbA1C BLD High Ha1C 9.7 % 4.0-6.0 % Final Nor th (Hemoglobin Count ry a1C), [facility] (Internal) : [address] 12/08/2020 HbA1C BLD High Ha1C >13.2 % 4.0-6.0 % Final No rth (Hemoglobin Count ry a1C), [facility] (Internal) : [address] t 12/08/2020 Microalbumin UR ? Malb 10.0 mg/L 5.0-16.7 Fi nal [place] , Urine mg/L [facility] L ab (Internal) : [address] ? ? UR ? U-crea 50 mg/dL 30-125 Final [place] , Spot mg/dL [facility] L ab (Internal) : [address] ? ? UR ? Microa 19.8 ug/mg 0.0-30.0 Final Nor th lb/crea ug/mg [facility] L ab (Internal) : [address] 10/22/2020 CBC W/ Auto BLD ? Wbc 7.8 10*3/uL 5.0-10.0 F inal [place] Diff 10*3/uL [facility] L ab (Internal) : [address] ? ? BLD ? Rbc 5.40 10*6/uL 4.60-6.00 Final N orth 10*6/uL [facility] L ab (Internal) : [address] t ? ? BLD ? Hgb 15.8 g/dL 14.0-18.0 Final Nort h g/dL [facility] L ab (Internal) : [address] ? ? BLD ? Hct 46.9 % 41.0-51.0 Final [place] % [facility] L ab (Internal) : [address] ? ? BLD ? Mcv 86.9 fL 80.0-96.0 Final [facility] L ab (Internal) : [address] ? ? BLD ? Mch 29.3 pg 26.0-32.0 Final [facility] L ab (Internal) : [address] [place] ? ? BLD ? Mchc 33.7 g/dL 31.0-35.0 [facility] L [facility] (Internal[facility] : [address] ? ? BLD ? Rdw 13.2 % 11.5-14.[address] [facility] L ab (Internal) : [address] [place] ? ? BLD ? Plt 249 10*3/uL 130-450 Final Nort h 10*3/uL [facility] L ab (Internal) : [address] [place] ? ? BLD ? Anc 5.22 10*3/uL ? Final Nort h [facility] L ab (Internal) : [address] ? ? BLD ? Nlr 2.95 0.00-3.20 Final [facility] ab (Internal) : [address] [place] ? ? BLD ? Neutro 66.6 % 40.0-75.[address] [facility] L ab (Internal) : [address] [place] ? ? BLD ? Lymph 22.6 % 20.0-50.[address] [facility] L ab (Internal) : [address] [place] ? ? BLD ? [place] 8.6 % 2.0-10.[address] [facility] L ab (Internal) : [address] [place] ? ? BLD ? Eos 1.5 % 1.0-6.0 % Final L ab (Internal) : [address] [place] ? ? BLD ? Baso 0.3 % 0.0-1.0 % Final L ab (Internal) : [address] [place] ? ? BLD ? Ig 0.4 % 0.0-0.9 % Final L ab (Internal) : [address] t 10/22/2020 Urinalysis, UR ? UA-col yellow pale Final [place] Dipstick, or yellow [facility] Lab (Internal) : [address] ? ? UR ? UA-barbara clear clear Final [facility] : [address] t ? ? UR ? UA-spe 1.015 1.003-1.0 Final [place] c Grav 35 [facility] L ab (Internal) : [address] t ? ? UR ? UA-pH 6.0 [pH] 4.6-8.0 Final [place] [pH] [facility] L ab (Internal) : [address] t ? ? UR ? UA-skyler negative negative Final [place] k Est [facility] L ab (Internal) : [address] t ? ? UR ? UA-nit negative negative [facility] ([facility] : [address] t ? ? UR ? UA-pro negative negative Final [facility] L ab (Internal) : [address] t ? ? UR ABNORMAL UA-glu 4+ negative Final [facility] L ab (Internal) : [address] t ? ? UR ? UA-ket negative negative Final [facility] L ab (Internal) : [address] t ? ? UR ? UA-uro normal normal Final [place] stephanie [facility] L ab (Internal) : [address] t ? ? UR ? UA-stephanie negative negative Final [place] i [facility] L ab (Internal) : [address] t ? ? UR ? UA-blo negative negative Final [place] od [facility] L ab (Internal) : [address] 10/22/2020 CMP, Serum S High g/r 425 mg/dL 74-106 Final [facility] or Plasma mg/dL [facility] L ab (Internal) : [address] t ? ? S ? Bun 15 mg/dL 9-20 Final [facility] mg/dL [facility] L ab (Internal) : [address] t ? ? S ? Crea 1.00 mg/dL 0.66-1.25 Final Nor th mg/dL [facility] L ab (Internal) : [address] t ? ? S ? Ca 9.7 mg/dL 8.4-10.2 Final [facility] mg/dL [facility] L ab (Internal) : [address], [place] ? ? S Low Na 135 mmol/L 137-145 Final [facility] mmol/L [facility] L ab (Internal) : [address] t ? ? S ? K 4.6 mmol/L 3.5-5.1 Final [facility] mmol/L [facility] L ab (Internal) : [address] t ? ? S ? Cl 98 mmol/L 98-107 Final [facility] mmol/L [facility] L ab (Internal) : [address] t ? ? S ? Tco2 25.0 mmol/L 22.0-30.0 Final No rth mmol/L [facility] L ab (Internal) : [address] t ? ? S ? Tp 7.2 g/dL 6.3-8.2 Final [facility] g/dL [facility] L ab (Internal) : [address] t ? ? S ? Alb 4.4 g/dL 3.5-5.0 Final [facility] g/dL [facility] L ab (Internal) : [address] t ? ? S ? Tbil 0.4 mg/dL 0.2-1.3 Final [place] mg/dL [facility] L ab (Internal) : [address] t ? ? S ? Alp 74 U/L 38-126 Final [facility] U/L [facility] L ab (Internal) : [address] t ? ? S ? Alt 21 U/L 21-72 U/L Final [place] (Sgpt) [facility] L ab (Internal) : [address] t ? ? S ? Ast 21 U/L 17-59 U/L Final [place] (Sgot) [facility] L ab (Internal) : [address] 10/22/2020 CRP, High S ? Rcrp <0.10 mg/dL 0.10-0.30 Fi nal [place] Sensitivity, mg/dL Coun try Serum or Hospital Lab Plasma (Internal) : [address] 10/22/2020 Ketones, S ? Ketone 0.4 mmol/L 0.0-0.5 Final [facility] Quantitative (Bhb mmol/L Coun try , Blood Quant) Hospital Lab (Internal) : [address] 10/22/2020 Lactic Acid, S ? La 0.7 mmol/L 0.7-2.1 Fi nal [facility] Blood mmol/L [facility] (Internal) : [address] t 06/26/2020 CMP, Serum S High g/r 274 mg/dL 74-106 Final [facility] or Plasma mg/dL [facility] (Internal) : [address] t ? ? S High Bun 21 mg/dL 9-20 Final [facility] mg/dL [facility] ([facility]) : [address] t ? ? S ? Crea 0.90 mg/dL 0.66-1.25 Final Nor th mg/dL [facility] (Internal) : [address] t ? ? S ? Ca 9.7 mg/dL 8.4-10.2 Final [facility] mg/dL [facility] ([facility]) : [address] t ? ? S ? Na 138 mmol/L 137-145 Final [facility] mmol/L [facility] (Internal) : [address] t ? ? S ? K 4.6 mmol/L 3.5-5.1 Final [facility] mmol/L [facility] (Internal) : [address] t ? ? S ? Cl 102 mmol/L 98-107 Final [facility] mmol/L [facility] (Internal) : [address] t ? ? S ? Tco2 28.0 mmol/L 22.0-30.0 Final No rth mmol/L [facility] (Internal) : [address] t ? ? S ? Tp 6.8 g/dL 6.3-8.2 Final [facility] g/dL [facility] (Internal) : [address] t ? ? S ? Alb 4.1 g/dL 3.5-5.0 Final [facility] g/dL [facility] (Internal) : [address] t ? ? S ? Tbil 0.2 mg/dL 0.2-1.3 Final [facility] mg/dL [facility] (Internal) : [address] t ? ? S ? Alp 65 U/L 38-126 Final [facility] U/L [facility] ([facility]) : [address] t ? ? S ? Alt 21 U/L 21-72 U/L Final [place] (Sgpt) [facility] (Internal) : [address] t ? ? S ? Ast 26 U/L 17-59 U/L Final [place] (Sgot) [facility] (Internal) : [address] 06/26/2020 Lipid Panel, S ? Chol 94 mg/dL 50-200 Final [facility] Serum mg/dL [facility] (Internal) : [address] t ? ? S ? Trig 126 mg/dL 10-150 Final [facility] mg/dL [facility] (Internal) : [address] t ? ? S Low Hdl 29 mg/dL 40-60 Final [facility] mg/dL [facility] (Internal) : [address] t ? ? S ? Ldl 40 mg/dL 0-130 Final [facility] mg/dL [facility] (Internal) : [address] 06/26/2020 HbA1C BLD High Ha1C 13.2 % 4.0-6.0 % Final [facility] th (Hemoglobin Count ry a1C), [facility] (Internal) : [address] 06/26/2020 PSA, Serum S ? PSA 1.2 NG/mL 0.0-4.0 Final [facility] or Plasma Scrn NG/mL [facility] (Internal) : [address] 02/13/2019 Lipid Panel, S - Chol 134 mg/dL 50-200 Nadine l [facility] Serum mg/dL [facility] (Internal) : [address] t ? ? S - Trig 134 mg/dL 10-150 Final [facility] mg/dL [facility] (Internal) : [address] ? ? S Low Hdl 33 mg/dL 40-60 Final [facility] mg/dL [facility] (Internal) : [address] t ? ? S - Ldl 74 mg/dL 0-130 Final [facility] mg/dL [facility] (Internal) : [address] 02/13/2019 CMP, Serum S High g/r 235 mg/dL 74-106 Final [facility] or Plasma mg/dL [facility] (Internal) : [address] t ? ? S - Bun 15 mg/dL 9-20 Final [facility] mg/dL [facility] (Internal) : [address] t ? ? S - Crea 0.90 mg/dL 0.66-1.25 Final [facility] th mg/dL [facility] (Internal) : [address] t ? ? S - Ca 9.2 mg/dL 8.4-10.2 Final [facility] mg/dL [facility] (Internal) : [address] t ? ? S - Na 141 mmol/L 137-145 Final [facility] mmol/L [facility] (Internal) : [address] t ? ? S - K 4.7 mmol/L 3.5-5.1 Final [facility] mmol/L [facility] (Internal) : [address] t ? ? S - Cl 103 mmol/L 98-107 Final [facility] mmol/L [facility] ([facility]) : [address] t ? ? S - Tco2 29.0 mmol/L 22.0-30.0 Final No rth mmol/L [facility] (Internal) : [address] t ? ? S - Tp 7.1 g/dL 6.3-8.2 Final [facility] g/dL [facility] ([facility]) : [address] t ? ? S - Alb 4.2 g/dL 3.5-5.0 Final [facility] g/dL [facility] ([facility]) : [address] t ? ? S - Tbil 0.4 mg/dL 0.2-1.3 Final [facility] mg/dL [facility] ([facility]) : [address] t ? ? S - Alp 88 U/L 38-126 Final [facility] U/L [facility] ([facility]) : [address] t ? ? S - Alt 26 U/L 21-72 U/L Final [place] (Sgpt) [facility] (Internal) : [address] t ? ? S - Ast 21 U/L 17-59 U/L Final [place] (Sgot) [facility] (Internal) : [address] t 02/13/2019 HbA1C BLD High Ha1C 10.9 % 4.0-6.0 % Final Nor th (Hemoglobin Count ry a1C), [facility] (Internal) : [address] t 09/13/2017 Venipuncture BLD ? Venpn* ? ? Final [facility] : [address] t 09/13/2017 HbA1C BLD High Ha1C 10.1 % 4.0-6.0 % Final Nor th (Hemoglobin Count ry a1C), [facility] (Internal) : [address] t 07/29/2016 Venipuncture BLD ? Venpn* ? ? Final [facility] (Internal[facility] : [address] t 07/29/2016 HbA1C BLD High Ha1C 9.4 % 4.0-6.0 % Final Nor th (Hemoglobin Count ry a1C), [facility] (Internal) : [address] t 07/29/2016 CMP, Serum S High g/r 148 mg/dL 74-106 Final [facility] or Plasma mg/dL [facility] ([facility] : [address] t ? ? S ? Bun 16 mg/dL 9-20 Final [facility] mg/dL [facility] ([facility]) : [address] t ? ? S ? Crea 0.90 mg/dL 0.66-1.25 Final [facility] mg/dL [facility] ([facility]) : [address] t ? ? S ? Ca 9.2 mg/dL 8.4-10.2 Final [facility] mg/dL [facility] ([facility]) : [address] t ? ? S ? Na 144 mmol/L 137-145 Final [facility] mmol/L [facility] (Internal) : [address] t ? ? S ? K 4.5 mmol/L 3.5-5.1 Final [facility] mmol/L [facility] (Internal) : [address] t ? ? S ? Cl 103 mmol/L 98-107 Final [facility] mmol/L [facility] L ab (Internal) : [address] t ? ? S ? Tco2 30.0 mmol/L 22.0-30.0 Final No rth mmol/L [facility] (Internal) : [address] t ? ? S ? Tp 7.3 g/dL 6.3-8.2 Final [facility] g/dL [facility] ([facility]) : [address] t ? ? S ? Alb 4.3 g/dL 3.5-5.0 Final [facility] g/dL [facility] (Internal) : [address] t ? ? S ? Tbil 0.5 mg/dL 0.2-1.3 Final [facility] mg/dL [facility] ([facility]) : [address] t ? ? S ? Alp 71 U/L 38-126 Final [facility] U/L [facility] ([facility]) : [address] t ? ? S ? Alt 42 U/L 21-72 U/L Final [place] (Sgpt) [facility] (Internal) : [address] t ? ? S ? Ast 23 U/L 17-59 U/L Final [facility] (Sgot) [facility] (Internal) : [address] 07/29/2016 Lipid Panel, S ? Chol 116 mg/dL 50-200 Nadine l [facility] Serum mg/dL [facility] (Internal) : [address] t ? ? S ? Trig 90 mg/dL 10-150 Final [facility] mg/dL [facility] (Internal) : [address] t ? ? S Low Hdl 36 mg/dL 40-60 Final [facility] mg/dL [facility] (Internal) : [address] t ? ? S ? Ldl 62 mg/dL 0-130 Final [facility] mg/dL [facility] ([facility]) : [address] t Past Encounters 08/25/2021 Lumbar Radiculopathy; Hyponatremia; Type 2 Diabetes Mellitus without Complication Faisal Brandt MD: [address] [place] [phone], Ph. 08/20/2021 Lumbar Radiculopathy Faisal Brandt MD: [address] [place] [phone], Ph. 07/23/2021 Degeneration of Lumbar Intervertebral Di sc; Hyperlipidemia; Insomnia; Type 2 Diabetes Mellitus without Complication; Hypertensive Disorder; Active or Passive Immunization; Administration of Influenza Vaccine; Influenza Vaccine Needed Faisal Brandt MD: [address] [place] [phone], Ph. 06/22/2021 Type 2 Diabetes Mellitus without Complic ation; Hypertensive Disorder; Fatigue; Cervical Radiculopathy; Peripheral Vascular Disease Faisal Brandt MD: [address] [place] [phone], Ph. 06/01/2021 Type 2 Diabetes Mellitus without Complic ation Sierra Doe, RN: [address] [place] [phone], Ph. 06/01/2021 Hypertensive Disorder; Spinal Stenosis i n Cervical Region with Myelopathy; Intermittent Claudication; Hyponatremia; Type II Diabetes Mellitus Uncontrolled; Unintentional Weight Loss Faisal Brandt MD: [address] [place] [phone], Ph. 05/18/2021 Type 2 Diabetes Mellitus without Complic ation Sierra Doe, RN: [address] [place] [phone], Ph. 05/18/2021 Hypertensive Disorder; Hyperlipidemia; I nfluenza Vaccine Needed; Spinal Stenosis in Cervical Region with Myelopathy; Intermittent Claudication; Hyponatremia; Type II Diabetes Mellitus Uncontrolled; Unintentional Weight Loss Faisal Brandt MD: [address] [place] [phone], Ph. 04/30/2021 Type 2 Diabetes Mellitus without Complic ation Sierra Doe, RN: [address] [place] [phone], Ph. 04/26/2021 Unintentional Weight Loss; Type 2 Diabet es Mellitus without Complication; Hypertensive Disorder; Chronic Back Pain Suzi Patricio SERVICE DELIVERY MANAGER: [address] [place] [phone], Ph. 04/21/2021 Unintentional Weight Loss Ruy Mahmood MD: [address] [place] [phone], Ph. 04/06/2021 Weight Loss; Type 2 Diabetes Mellitus wi thout Complication; Influenza Vaccine Needed; Hypertensive Disorder Suzi Patricio SERVICE DELIVERY MANAGER: [address] [place] [phone], Ph. 02/18/2021 Inguinal Pain Ruy Mahmood MD: [address] [place] [phone], Ph. 02/16/2021 Right Inguinal Pain; Type 2 Diabetes Caitlin litus without Complication; Hypertensive Disorder; Insomnia Suzi Patricio SERVICE DELIVERY MANAGER: [address] [place] [phone], Ph. 01/05/2021 Type 2 Diabetes Mellitus without Complic ation Suzi Patricio SERVICE DELIVERY MANAGER: [address] [place] [phone], Ph. 12/29/2020 Type 2 Diabetes Mellitus without Complic ation Sierra Doe, RN: [address] [place] [phone], Ph. 12/08/2020 Type 2 Diabetes Mellitus without Complic ation Sierra Doe, RN: [address] [place] [phone], Ph. 11/19/2020 Type 2 Diabetes Mellitus without Complic ation; Post-herpetic Polyneuropathy; Hypertensive Disorder Suzi Patricio NP: [address] [place] [phone], Ph. 10/30/2020 Administration of Viral Vaccine; Posther petic Neuralgia; Type 2 Diabetes Mellitus without Complication Suzi Patricio SERVICE DELIVERY MANAGER: [address] [place] [phone], Ph. 10/22/2020 Post-herpetic Polyneuropathy; Weight Los s; Type 2 Diabetes Mellitus without Complication Suzi Patricio NP: [address] [place] [phone], Ph. 09/29/2020 Neck Pain; Type 2 Diabetes Mellitus with out Complication; Hypertensive Disorder Suzi Patricio SERVICE DELIVERY MANAGER: [address] [place] [phone], Ph. 09/09/2020 Herpes Zoster; Type 2 Diabetes Mellitus without Complication; Hypertensive Disorder Suzi Patricio SERVICE DELIVERY MANAGER: [address] [place] [phone], Ph. 09/08/2020 Katarzyna Mendoza RN: [address] [place] [phone], Ph. 08/24/2020 Type 2 Diabetes Mellitus without Complic ation; Hypertensive Disorder; Hyperlipidemia Suzi Patricio NP: [address] [place] [phone], Ph. 06/30/2020 Type 2 Diabetes Mellitus without Complic ation; Neck Pain Suzi Patricio NP: [address] [place] [phone], Ph. 03/04/2020 Adult Health Examination; Hyperlipidemia ; Hypertensive Disorder; Type 2 Diabetes Mellitus without Complication; Screening for Malignant Neoplasm of Prostate; Active or Passive Immunization; Cervical Radiculopathy; Nicotine Dependence Suzi Patricio NP: [address] [place] [phone], Ph. Social History Tobacco Smoking Status Heavy Tobacco Smoker (1 pack Notes: 1 ppd, 50+ years per day) Vaccine List Vaccine Type COVID-19 vaccine, vector-nr, [id number], PF , 0.5 mL ([employer]) 10/06/2020 influenza, high-dose, quadrivalent 03/04/2020?0.7 mL influenza, injectable, quadrivalent, pre servative free 06/03/2016?0.5 mL 02/27/2018?0.5 mL influenza, seasonal, injectable 06/12/2012 influenza, seasonal, injectable, preserv ative free 03/15/2010?0.5 mL 04/28/2011 05/15/2012?0.5 mL pneumococcal conjugate PCV 13 03/04/2020?0.5 mL pneumococcal polysaccharide [id number] 06/12/2008 Tdap 03/02/2010?0.5 mL zoster recombinant 10/30/2020?0.5 mL Plan of Care Patient Instructions Please call Sierra Doe RN Mine Utility Operator at ext [phone] with any non-emergent questions or concerns r elated to diabetes self-management. Reminders Provider Appointments None recorded. ? ? Lab None recorded. ? ? Referral None recorded. ? ? Procedures None recorded. ? ? Surgeries None recorded. ? ? Imaging None recorded. ? ? Vitals 08/25/2021 03:20PM Opioid Management 20 Height Weight BMI Blood Pressure 172.72 cm 57.15 kg 19.2 kg/m2 100/58 mm[Hg] 08/20/2021 01:00PM Follow Up 40 Height Weight BMI Blood Pressure 172.72 cm 56.88 kg 19.1 kg/m2 116/76 mm[Hg] 07/23/2021 12:40PM Follow Up 40 Height Weight BMI Blood Pressure 172.72 cm 59.51 kg 19.9 kg/m2 118/78 mm[Hg] 06/22/2021 08:40AM Follow Up 40 Height Weight BMI Blood Pressure 172.72 cm 55.57 kg 18.6 kg/m2 115/70 mm[Hg] 06/01/2021 02:00PM Follow Up 20 Height Weight BMI Blood Pressure 172.72 cm 56.93 kg 19.1 kg/m2 100/58 mm[Hg] 05/18/2021 10:40AM Office ALINE 40 Height Weight BMI Blood Pressure 172.72 cm 55.42 kg 18.6 kg/m2 112/74 mm[Hg] 04/30/2021 09:00AM Office 30 Height 172.72 cm 04/26/2021 08:00AM Follow Up 40 Height Weight BMI Blood Pressure 172.72 cm 56.2 kg 18.8 kg/m2 118/76 mm[Hg] 04/21/2021 02:15PM Office 15 Height Weight BMI 172.72 cm 56.7 kg 19 kg/m2 04/06/2021 11:20AM Acute 20 Height Weight BMI Blood Pressure 172.72 cm 56.47 kg 18.9 kg/m2 100/70 mm[Hg] 02/18/2021 12:00PM Acute 15 Height Weight BMI Blood Pressure 172.72 cm 65.77 kg 22 kg/m2 128/74 mm[Hg] 02/16/2021 08:00AM Same Day 20 Height Weight BMI Blood Pressure 172.72 cm 66.04 kg 22.1 kg/m2 130/62 mm[Hg] 01/05/2021 09:20AM Same Day 20 Height Weight BMI Blood Pressure 172.72 cm 69.72 kg 23.4 kg/m2 128/80 mm[Hg] 12/08/2020 03:30PM Office 30 Height 172.72 cm 11/19/2020 03:40PM Follow Up 20 Height Weight BMI Blood Pressure 172.72 cm 71.7 kg 24 kg/m2 116/70 mm[Hg] 10/30/2020 10:20AM Follow Up 20 Height Weight BMI Blood Pressure 172.72 cm 70.72 kg 23.7 kg/m2 118/62 mm[Hg] 10/22/2020 07:40AM Follow Up 20 Height Weight BMI Blood Pressure 172.72 cm 70.31 kg 23.6 kg/m2 132/78 mm[Hg] 09/29/2020 02:20PM Follow Up 20 Height Blood Pressure 172.72 cm 140/72 mm[Hg] 09/09/2020 07:40AM Acute 20 Height Blood Pressure 172.72 cm 124/68 mm[Hg] 08/24/2020 02:20PM Follow Up 20 Height Weight BMI Blood Pressure 172.72 cm 76.26 kg 25.6 kg/m2 112/68 mm[Hg] 06/30/2020 03:40PM Acute 20 Height Blood Pressure 172.72 cm 110/64 mm[Hg] 03/04/2020 03:20PM CPE 40 Height Weight BMI Blood Pressure 172.72 cm 78.7 kg 26.4 kg/m2 132/80 mm[Hg] 12/31/2019 01:20PM Acute 20 Height Weight BMI Blood Pressure 172.72 cm 78.65 kg 26.4 kg/m2 124/70 mm[Hg] 02/19/2019 04:20PM Follow Up 40 Height Weight BMI Blood Pressure 172.72 cm 75.41 kg 25.3 kg/m2 130/80 mm[Hg] 02/27/2018 04:20PM Acute 20 Height Weight BMI Blood Pressure 172.72 cm 78.93 kg 26.5 kg/m2 130/70 mm[Hg] 09/13/2017 Weight Blood Pressure 78.65 kg 121/73 mm[Hg] 08/05/2016 Weight Blood Pressure 79.7 kg 134/86 mm[Hg] 06/03/2016 Weight Blood Pressure 79.88 kg 130/82 mm[Hg] 12/04/2015 Height Weight Blood Pressure 172.09 cm 77.56 kg 138/68 mm[Hg] 07/17/2015 Height Weight Blood Pressure 170.82 cm 77.38 kg 140/72 mm[Hg] 04/15/2015 Weight Blood Pressure 73.03 kg 118/64 mm[Hg] 03/06/2015 Weight Blood Pressure 70.22 kg 110/68 mm[Hg] 02/10/2015 Weight Blood Pressure 72.3 kg 106/70 mm[Hg] 09/04/2014 Height Weight Blood Pressure 170.82 cm 76.48 kg 122/70 mm[Hg] 09/02/2013 Height Weight Blood Pressure 170.82 cm 78.11 kg 121/72 mm[Hg] 02/14/2013 Height Weight Blood Pressure 170.82 cm 80.92 kg 112/68 mm[Hg] 12/17/2012 Height Weight Blood Pressure 170.18 cm 82.28 kg 116/74 mm[Hg] 05/15/2012 Height Weight Blood Pressure 170.18 cm 83.42 kg (1) 126/78 mm[Hg] (2) 140/78 mm[Hg] 10/25/2011 Weight Blood Pressure 82.78 kg 114/70 mm[Hg] 04/28/2011 Height Weight Blood Pressure 170.18 cm 86 kg 148/92 mm[Hg] 08/17/2010 Weight Blood Pressure 86.27 kg (1) 120/82 mm[Hg] (2) 132/82 mm[Hg] 05/18/2010 Weight Blood Pressure 83.6 kg 114/70 mm[Hg] 03/29/2010 Weight Blood Pressure 83.12 kg 124/80 mm[Hg] 03/15/2010 Weight Blood Pressure 84.51 kg 96/60 mm[Hg] 03/02/2010 Height Weight Blood Pressure 171.45 cm 85.98 kg 110/72 mm[Hg] 03/01/2010 Weight Blood Pressure 87.23 kg 136/78 mm[Hg] 11/13/2009 Weight Blood Pressure 89.36 kg 126/80 mm[Hg] 07/21/2009 Weight Blood Pressure 88.9 kg 140/68 mm[Hg] 04/10/2009 Weight Blood Pressure 87.54 kg 142/80 mm[Hg] 07/31/2008 Weight Blood Pressure 87.09 kg 132/74 mm[Hg] 06/27/2008 Weight Blood Pressure 88 kg 122/80 mm[Hg] 06/08/2006 Blood Pressure 122/76 mm[Hg] 05/18/2006 Height Weight Blood Pressure 170.18 cm 81.19 kg 134/80 mm[Hg]
--- OUTSIDE RECORDS SUMMARY | 2021-08-27 10:47 | XMS_ITS | Encounter Summary ---
:1955 Author Care Team Providers Name Role Phone Faisal Brandt MD Primary Care Provider [phone] Katrin Doe Building Construction Teacher [phone] Ruy Sellers MD General Surgeon [phone] Reason for Visit low back pain Assessment and Plan 1. Lumbar radiculopathy Intractable pain secondary to lumbar radiculopathy for which he has seen neurosurgery. Trial of gabapentin, lidoc cash and prednisone of no benefit. He has completed a 1 week trial of oxycodone. H e states that it helped for the first 1 to 2 days but has not provided any benefit si nce then. This conflicts with message from yesterday saying that his pain had resol adis and he wants to return to work. We will continue oxycodone as prescribed and ref er back to pain management to see if they have any other treatment recommendations . Last pain management consultation note reviewed. ? oxycodone 10 mg tablet ? pain management referral - Intractable pain secondary to lumbar radiculopathy for which he has seen neur osurgery. Trial of gabapentin, lidocaine and prednisone of no benefit. He has complet ed a 1 week trial of oxycodone. He states that it helped for the first 1 to 2 days but has not provided any benefit since then. This conflicts with message from yesterd ay saying that his pain had resolved and he wants to return to work. We will continu e oxycodone as prescribed and refer back to pain management to see if they have any other treatment recommendations. Last pain management consultation note reviewed. 2. Hyponatremia Labs reviewed. Recheck ? BMP, serum or plasma 3. Type 2 diabetes mellitus with out complication Patient admits he rarely check s his blood sugars. Recent A1c suggests poor control. We will check a lactic acid in the setting of Metformin chronic pain. He was advised to hold Metformin until follow-u p in 2 weeks. ? lactic acid, blood Discussion Note: None recorded.Patient educational handouts: No information available. Plan of Care Reminders Provider Appointments Opioid 09/08/2021 Faisal Rikki, Management 20 11:00AM ? Or 60 on or around Ruy Jacobs grady, 05/24/2028 Lab BMP, Serum 08/25/2021 [facility] or Plasma Hospital Lab (Internal) ? Lactic Acid, 08/25/2021 [facility] Blood Hospital Lab (Internal) Referral Pain 08/25/2021 [facility] Referral [facility] Procedures None ? ? recorded. Surgeries None [...] [facility] 10 [facility] tablet [...] reviewed 08/25/2021 Medications Administered None recorded. Vitals Height Weight BMI Blood Pressure 5 ft 8 in 126 lbs 19.2 kg/m2 100/58 mm[Hg] Results Lab Results Date Name Specimen Result Interpretation Description Value Range Status Address ? 08/25/2021 Lactic S High La 3.7 0.7-2.1 Final [facility] Acid, mmol/L mmol/L [facility] L ab Blood (Internal) : [address] 08/25/2021 BMP, S High g/r 359 mg/dL 74-106 Final [facility] Serum or mg/dL Hospital Lab Plasma (Internal) : [address] ? ? S High Bun 19 mg/dL 7-18 mg/dL Final [facility] L ab (Internal) : [address] ? ? S ? Crea 1.0 mg/dL 0.7-1.3 Final [facility] mg/dL Hospital L ab (Internal) : [address] ? ? S ? Ca 8.9 mg/dL 8.5-10.1 Final [facility] mg/dL Hospital L ab (Internal) : [address] ? ? S Low Na 132 136-145 Final [place] mmol/L mmol/L Hospital L ab (Internal) : [address] ? ? S ? K 4.2 3.5-5.1 Final [place] mmol/L mmol/L Hospital L ab (Internal) : [address] ? ? S ? Cl 98 mmol/l 98-107 Final [facility] mmol/l Hospital L ab (Internal) : [address] ? ? S ? Tco2 22.6 21.0-32.0 Final [facility] mmol/L mmol/L Hospital L ab (Internal) : [address] Allergies Code Code System Name Reaction Severity Onset 357994 RxNorm Bactrim Myalgias (Muscle Severe ? Pain) [...] Notes: Repeat in 7 years per path [id number]: severe colitis of descending colon with biopsy pathology consistent with ischemic event. Suspected infectious in etiology 06/13/2008 Lesion Excision Information not avai lable Notes: right lower extremity abscess 06/12/2006 Hernia Repair Inguinal Information not a vailable Vaccine List Vaccine Type COVID-19 vaccine, vector-nr, rS-Ad26, PF , 0.5 mL ([employer]) 10/06/2020 influenza, high-dose, quadrivalent 03/04/2020?0.7 mL influenza, [...] Yes walking or climbing stairs?? Past Encounters 08/25/2021 Lumbar Radiculopathy; Hyponatremia; Type 2 Diabetes Mellitus without Complication Faisal Brandt MD: [address] [place] [phone], Ph. 08/20/2021 Lumbar Radiculopathy Faisal Brandt MD: [address] [place] [phone], Ph. History of Present Illness Note: <div>PT here for 7 day f/u pain</div><div>
</div><div>&lt ;br></div><div>Patient is here for 28 day follow up and to discuss gabapentin. Patient also here to f/u on depression. </div><div>Patient has lost 6 lbs since last month. Patient states that he is taking 300mg of gabapentin he reports that it is not working at. Patient reports that he will getting a lumber epidural injection but is not sure of the date. </div> Review of Systems ? Notes: <p>Review of systems as prev iously described and otherwise negative for 10 organ systems</p> Physical Exam ? Notes: <p>General: Alert. Not in ac elizabeth distress. Thin. Frail</p><p>HEENT: NCAT. No Nystagmus. Pupils equal, rou nd and reactive.</p><p>Neck: Without adenopathy or thyromegaly, Trachea midline .</p><p>Cardiopulmonary: No cardiopulmonary distress</p><p>Abdomen: Soft , nondistended, nontender.</p><p>Peripheral Vascular: No edema.</p><p>Ne urologic: Awake alert and oriented. Cranial nerves II-XII intact. EOMI.</p><p>M usculoskeletal: Normal range of motion.</p><p>Skin: Normal M oisture. Warm.</p><p>Lymphatic: No appreciated adenopathy</p><p>Psychiatric : Appropriate</p>
--- OUTSIDE RECORDS SUMMARY | 2021-08-27 10:47 | XMS_ITS | Encounter Summary ---
:1955 Author Care Team Providers Name Role Phone Faisal Brandt MD Primary Care Provider [phone] Katrin Doe Artificial Foliage Arranger [phone] Ruy Sellers MD General Surgeon [phone] Reason for Visit None recorded. Assessment and Plan 1. Hypertensive disorder Discontinue lisinopril in the setting of continued hypotension 2. Spinal stenosis in cervical r egion with myelopathy Prominent component of his com plaint today is bilateral lower extremity weakness and claudication. LS spine MRI reviewed. Consider cervical myelopathy as well as vascular etiology of claudicatio n. Pursue MRI of the C-spine as well as CT angiogram of lower extremity vasculature both still pending. [facility] vascular surgery unable to contact the patient. Social se rvices consultation to facilitate. Cilostazol of no benefit 3. Intermittent claudication Prominent component of his com plaint today is bilateral lower extremity weakness and claudication. LS spine MRI reviewed. Consider cervical myelopathy as well as vascular etiology of claudicatio n. Pursue MRI of the C-spine as well as CT angiogram of lower extremity vasculature both still pending. [facility] vascular surgery unable to contact the patient. Social se rvices consultation to facilitate. Cilostazol of no benefit 4. Hyponatremia Labs reviewed 5. Type II diabetes mellitus unc ontrolled Labs reviewed. Continue Metfor min to 1000 mg twice daily 6. Unintentional weight loss Extensive appropriate work-up reviewed with no conclusive diagnosis. Patient has demonstrated weight gain sin ce last office visit 2 weeks ago Discussion Note: None recorded.Patient educational handouts: No information available. Plan of Care Reminders Provider Appointments Opioid 09/08/2021 Faisal Brandt, Management 20 11:00AM ? Or 60 on or around Ruy Ortez, 05/24/2028 Lab None ? ? recorded. Referral [...] every day by miscell. [facility]. oxycodone 10 mg tablet ? Take [...] BMI Blood Pressure 5 ft 8 in 125 lbs 8 oz 19.1 kg/m2 100/58 mm[Hg] Results Lab Results None recorded. Allergies Code Code System Name Reaction Severity Onset 649847 RxNorm Bactrim Myalgias (Muscle Severe ? Pain) [...] Notes: Repeat in 7 years per path [id number]: severe colitis of descending colon with biopsy pathology consistent with ischemic event. Suspected infectious in etiology 06/13/2008 Lesion Excision Information not avai lable Notes: right lower extremity abscess 06/12/2006 Hernia Repair Inguinal Information not a vailable 05/18/2021 MRI, Cervical Spine, W/o Contrast [facility] (Internal) [address] [place] [address] (Work Place) 05/18/2021 CT, Angiogram, Abdominal Aorta, W/ [facility] (Internal) Runoff, W/wo Contrast [address] [place] [address] (Work Place) 05/18/2021 US, Echocardiogram, Transthoracic, [facility] (Internal) Complete [address] [place] [address] (Work Place) Vaccine List Vaccine Type COVID-19 vaccine, vector-nr, rS-Ad26, PF , 0.5 mL (Tus reQRdos) 10/06/2020 influenza, high-dose, quadrivalent 03/04/2020?0.7 mL influenza, [...] Mellitus without Complic ation Katrin Doe, RN: [address] [place] [phone], Ph. 06/01/2021 Hypertensive Disorder; Spinal Stenosis i n Cervical Region with Myelopathy; Intermittent Claudication; Hyponatremia; Type II Diabetes Mellitus Uncontrolled; Unintentional Weight Loss Faisal Brandt MD: [address] [place] [phone], Ph. 05/18/2021 Type 2 Diabetes Mellitus without Complic ation Katrin Doe, RN: [address] [place] [phone], Ph. 05/18/2021 Hypertensive Disorder; Hyperlipidemia; I nfluenza Vaccine Needed; Spinal Stenosis in Cervical Region with Myelopathy; Intermittent Claudication; Hyponatremia; Type II Diabetes Mellitus Uncontrolled; Unintentional Weight Loss Faisal Brandt MD: [address] [place] [phone], Ph. History of Present Illness ? Peripheral Vascular Disease Reported By: Patient HPI: Location: calf, buttock, michelle t, back. Quality: cramping, burning, aching, weakness, tingling. Severity : severe. Onset/Timing: continuous. Context: during walking, at rest, wit h using upper extremity, after exercise. Aggravating Factors: walking , sleeping, standing, bending. Associated Symptoms: weakness, numbness Note: <div>
</div><div>
</div><div>Pt needs to meet with Katrin after appt</div><div>Patient sates that he is a lot of pain and very fatigued &l t;/div> Review of Systems ? Notes: <p>Review of systems as prev iously described and otherwise negative for 10 organ systems</p> Physical Exam ? Notes: <p>General: Thin, frail, chr onically ill-appearing</p><p>HEENT: NCAT. No Nystagmus. Pupils equal, rou nd and reactive.</p><p>Neck: Without adenopathy or thyromegaly, Trachea midline .</p><p>Cardiopulmonary: No cardiopulmonary distress</p><p>Abdomen: Soft , nondistended, nontender.</p><p>Peripheral Vascular: No edema.</p><p>Ne urologic: Awake alert and oriented. Cranial nerves II-XII intact. EOMI.</p><p>M usculoskeletal: Normal range of motion.</p><p>Skin: Normal M oisture. Warm.</p><p>Lymphatic: No appreciated adenopathy</p><p>Psychiatric : Appropriate</p>
--- OUTSIDE RECORDS SUMMARY | 2021-08-27 10:47 | XMS_ITS | Encounter Summary ---
:1955 Author Care Team Providers Name Role Phone Faisal Brandt MD Primary Care Provider [phone] Katrin Doe Slot Floor Attendant [phone] Ruy Sellers MD General Surgeon [phone] Reason for Visit acute pain management; depression Assessment and Plan Assessment Note Opiate Novinger Precautions Non-opioid and non-pharmacological treatments have been considered. I have reviewed the [place] [employer] (Include Fitness) query results for this patient. This patient was provided education on the benefits and risks of treatment with opioid pain medication, and informed consent was obtained. See patient record for copies. I have prescribed the appropriate d ose of opioid pain medication for the appropriate length of time that is reasonable considering the patient's current clinical presentation. The patient is exempt from opioid p rescribing limits for the following reasons: Patient prescribed Narcan due to thang ng on a benzodiazepine and/or MME >90. Other: 1. Lumbar radiculopathy Intractable pain secondary to lumbar radiculopathy for which he has seen neurosurgery. Trial of gabapentin of no benefit. Discontinue gabapentin trial oxycodone. Follow-up in 1 week to monito r response ? oxycodone 10 mg tablet Discussion Note: None recorded.Patient educational handouts: No [...] every day by miscell. route in the morni ng. oxycodone 10 mg tablet ? Take [...] Pressure 5 ft 8 in 125 lbs 6.4 oz 19.1 kg/m2 116/76 mm[Hg] Results Lab Results None recorded. Allergies Code Code System Name Reaction Severity Onset 379621 RxNorm Bactrim Myalgias (Muscle Severe ? Pain) [...] Notes: Repeat in 7 years per path [id number]: severe colitis of descending colon with biopsy pathology consistent with ischemic event. Suspected infectious in etiology 06/13/2008 Lesion Excision Information not avai lable Notes: right lower extremity abscess 06/12/2006 Hernia Repair Inguinal Information not a vailable Vaccine List Vaccine Type COVID-19 vaccine, vector-nr, rS-Ad26, PF , 0.5 mL ([employer]) 10/06/2020 influenza, high-dose, quadrivalent 03/04/2020?0.7 mL influenza, [...] Yes walking or climbing stairs?? Past Encounters 08/20/2021 Lumbar Radiculopathy Faisal Brandt MD: [address] [place] [phone], Ph. 07/23/2021 Degeneration of Lumbar Intervertebral Di sc; Hyperlipidemia; Insomnia; Type 2 Diabetes Mellitus without Complication; Hypertensive Disorder; Active or Passive Immunization; Administration of Influenza Vaccine; Influenza Vaccine Needed Faisal Brandt MD: [address] [place] [phone], Ph. History of Present Illness ? Psychiatry Depression Reported By: Patient Depression HPI: Depression Quality: sad, dep ressed mood, anhedonia, lacks motivation. Timing of Symptoms: nearly e very day. Depression Context: major life stressors. Modifying factors : ; Patient reports I do not know if I am taking medication for dep ression.. Depression Associated Symptoms: ; Patient is stati ng that he is sick of being in pain. If I can not get help I do not know what I am going to. Note: <div>Patient is here for 28 day follow up and to discuss gabapentin. Patient also here tof/u on depression. </div><div>Patient has lost 6 lbs [...] ? Notes: <p>General: Alert. Not in ac [place] distress.</p><p>HEENT: NCAT. No Nystagmus. Pupils equal, round and reac tive.</p><p>Neck: Without adenopathy or thyromegaly, Trachea midline .</p><p>Cardiopulmonary: No cardiopulmonary distress</p><p>Abdomen: Soft , nondistended, nontender.</p><p>Peripheral Vascular: No edema.</p><p>Ne urologic: Awake alert and oriented. Cranial nerves II-XII intact. EOMI.</p><p>M usculoskeletal: Normal range of motion.</p><p>Skin: Normal M oisture. Warm.</p><p>Lymphatic: No appreciated adenopathy</p><p>Psychiatric : Appropriate</p>
--- OUTSIDE RECORDS SUMMARY | 2021-08-27 10:47 | XMS_ITS | Encounter Summary ---
:1955 Author Care Team Providers Name Role Phone Faisal Brandt MD Primary Care Provider [phone] Katrin Doe Back Closer [phone] Ruy Sellers MD General Surgeon [phone] Reason for Visit Hypertensive disorder disability paperwork Assessment and Plan 1. Type 2 diabetes mellitus with out complication Patient noncompliant with home fingerstick blood sugar checks. Will return in 1 month for 3-month follow-up on hemo globin A1c 2. Hypertensive disorder Well-controlled on current reg imen 3. Fatigue Echocardiogram pending 4. Cervical radiculopathy [facility] [place] [place] neurosurgery consultation pending 5. Peripheral vascular disease [facility] [place] vascular surgery consulta tion pending Discussion Note: None recorded.Patient educational handouts: No [...] every day by miscell. route in the [facility]. oxycodone 10 mg tablet ? Take 1 [...] BMI Blood Pressure 5 ft 8 in 122 lbs 8 oz 18.6 kg/m2 115/70 mm[Hg] Results Lab Results None recorded. Allergies Code Code System Name Reaction Severity Onset [id number] RxNorm Bactrim Myalgias (Muscle Severe ? Pain) [...] Notes: Repeat in 7 years per path [id number]: severe colitis of descending colon with biopsy pathology consistent with ischemic event. Suspected infectious in etiology 06/13/2008 Lesion Excision Information not avai lable Notes: right lower extremity abscess 06/12/2006 Hernia Repair Inguinal Information not a vailable 06/16/2021 US, Retroperitoneum [facility] [address] [place], [place] [address] (Work Place) 06/17/2021 US, Renal [facility] ([facility]) [address] [place], [place] [id number] (Work Place) Vaccine List Vaccine Type COVID-19 vaccine, vector-nr, rS-Ad26, PF , 0.5 mL ([employer]) 10/06/2020 influenza, high-dose, quadrivalent 03/04/2020?0.7 mL influenza, [...] Yes walking or climbing stairs?? Past Encounters 06/22/2021 Type 2 Diabetes Mellitus without Complic ation; Hypertensive Disorder; Fatigue; Cervical Radiculopathy; Peripheral Vascular Disease Faisal Brandt MD: [address] [place] [phone], Ph. 06/01/2021 Type 2 Diabetes Mellitus without Complic ation Katrin Doe, RN: [address] [place] [phone], Ph. 06/01/2021 Hypertensive Disorder; Spinal Stenosis i n Cervical Region with Myelopathy; Intermittent Claudication; Hyponatremia; Type II Diabetes Mellitus Uncontrolled; Unintentional Weight Loss Faisal Brandt MD: [address] [place] [phone], Ph. History of Present Illness ? Hypertension F/U Reported By: Patient HPI: Medications: taking medicati ons as directed, no side effects from medication. Lifestyle: limit ing/avoiding salt, not exercising regularly. Associated Symptoms: no ligh theadedness, no chest pain, no palpitations, no edema, no calf pain with exertion, no headache, dizziness, shortness of breath Note: <div>06/22/21: Follow up HTN. Last BP in office 100/58. Also here for disability paperwork. Patient is asking if he should have a 2nd vaccine for shingles. Patient daughter Elis is here withpatient. Patient is taking his metformin at the same time daughter wanted to know if this is okay. Patient states his legs are very weak. Patient states that amador's visit is also supposed to be to discuss surgery.</div><div>
</div><div>05/18/21-Pt states he isvery weak from his waist down, Pt breathing rapid just from walk to room, Pt states he is down to just skin and bones. Pt states he can hardly walk</div><div>04/26/21 Patient reports takingno medications, feeling terrible from my waist to my ankles.</div><div>Patient was [facility] from [facility] 04/14 for T2DM uncontrolled, hyponatremia,spinal stenosis.</div><div>Advised a fu CT lungs for nodules, fu with spine center gof multi-level disc degeneration, 04/21 consult with general surgeon for weight loss.</div> Review of Systems ? Notes: <p>Review of systems as prev iously described and otherwise negative for 10 organ systems</p> Physical Exam ? Notes: <p>General: Alert. Not in ac elizabeth distress. Vague. Tangential. Thin body habitus</p><p>HEENT: NCAT . No Nystagmus. Pupils equal, round and reactive.</p><p>Neck: Withou t adenopathy or thyromegaly, Trachea midline.</p><p>Cardiopulmona ry: No cardiopulmonary distress</p><p>Abdomen: Soft, nondistended, nontende r.</p><p>Peripheral Vascular: No edema.</p><p>Neurologic: Mari ke alert and oriented. Cranial nerves II-XII intact. EOMI.</p><p>Musculos keletal: Normal range of motion.</p><p>Skin: Normal Moisture. Warm.</p><p >Lymphatic: No appreciated adenopathy</p><p>Psychiatric : Appropriate</p>
--- OUTSIDE RECORDS SUMMARY | 2021-08-27 10:47 | XMS_ITS | Encounter Summary ---
:1955 Author Care Team Providers Name Role Phone Faisal Brandt MD Primary Care Provider [phone] [facility] Specialist [phone] Ruy Sellers MD General Surgeon [phone] Reason for Visit Hypertensive disorder; Hyperlipidemia; d iabetes Assessment and Plan 1. Degeneration of lumbar interv ertebral disc Consultations from vascular flores rgery and neurosurgery reviewed. Begin aqua therapy and chiropractic therapy and ret urn in 1 month for recheck. Patient does endorse interval improvement with his pa in with increase the gabapentin to 300 mg p.o. 3 times daily. Daughter is concerne d about side effect profile. Continue current regimen for the next month. Overall he l ooks better and seems more cognitively intact today than he has in the past. He has ga ined 9 pounds since last office visit a month ago. He is moving better and endorses be tter pain control. ? physical therapist referra l ? chiropractor referral 2. Hyperlipidemia ? atorvastatin 40 mg tablet ? lipid panel, serum 3. Insomnia ? hydroxyzine HCl 50 mg tabl et 4. Type 2 diabetes mellitus with out complication Home fingerstick blood sugars reviewed and noted to be under excellent control. Continue current regimen ? metformin 1,000 mg tablet ? glimepiride 2 mg tablet ? HbA1c (hemoglobin A1c), bl ood 5. Hypertensive disorder Well-controlled on current reg imen ? CMP, serum or plasma 6. Active or passive immunizatio n 7. Administration of influenza v accine 8. Influenza vaccine needed Discussion Note: None recorded.Patient educational handouts: No information available. Plan of Care Reminders Provider Appointments Opioid 09/08/2021 Faisal Brandt MD Management 20 11:00AM ? Or 60 on or around Ruy Ortez MD 05/24/2028 Lab CMP, Serum or 07/23/2021 [facility] Lab (Internal) ? HbA1C 07/23/2021 [place] (Hemoglobin a1C), Blood Hospital Lab (Internal) ? Lipid Panel, 07/23/2021 [facility] Hospital Lab (Internal) Referral Physical 07/23/2021 [place] [facility] Referral Therapy ? Chiropractor 07/23/2021 [facility] Referral Chiropractic [address] Procedures None ? ? recorded. Surgeries None [...] 04/15/2021 Take 1 strip every day by [facility]. route in the [facility]. oxycodone 10 mg tablet ? Take 1 [...] BMI Blood Pressure 5 ft 8 in 131 lbs 3 oz 19.9 kg/m2 118/78 mm[Hg] Results Lab Results Date Name Specimen Result Interpretation Description Value Range Status Address ? 07/23/2021 HbA1C BLD High Ha1C 9.4 % 4.0-6.0 % Final [facility] ([facility] a1C), Blood (Inte rnal): [address] 07/23/2021 Lipid Panel, S ? Chol 104 0-200 Final [facility] Serum mg/dL mg/dL Hospital L [facility] (Internal) : [address] t ? ? S ? Trig 120 0-[address] [facility] try mg/dL mg/dL Hospital L [facility] (Internal) : [address] t ? ? S ? Hdl 45 40-60 Final [place] [facility] mg/dL mg/dL [facility] (Internal) : [address] t ? ? S ? Ldl 35 0-130 Final [place] [facility] mg/dL mg/dL Hospital [facility] (Internal) : [address] 07/23/2021 CMP, Serum or S High g/r 198 74-106 Final [place] Plasma mg/dL mg/dL Hospital L [facility] (Internal) : [address] t ? ? S ? Bun 17 7-18 Final [place] [facility] mg/dL mg/dL Hospital [facility] (Internal) : [address] ? ? S ? Crea 0.8 0.7-1.3 Final [place] [facility] mg/dL mg/dL [facility] (Internal) : [address] t ? ? S ? Ca 9.4 8.5-10.1 Final [place] mg/dL mg/dL [facility] (Internal) : [address] t ? ? S Low Na 128 136-145 Final [place] mmol/L mmol/L [facility] (Internal) : [address] ? ? S ? K 4.7 3.5-5.1 Final [place] mmol/L mmol/L [facility] (Internal) : [address] t ? ? S Low Cl 93 98-107 Final [place] [facility] mmol/l mmol/l [facility] (Internal) : [address] t ? ? S ? Tco2 27.3 21.0-32.0 Final [place] mmol/L mmol/L Hospital [facility] (Internal) : [address] t ? ? S ? Tp 6.6 6.4-8.2 Final [place] [facility] g/dL g/dL [facility] (Internal) : [address] t ? ? S ? Alb 4.1 3.4-5.0 Final [place] g/dL g/dL Hospital [facility] (Internal) : [address] t ? ? S ? Tbil 0.30 0.20-1.00 Final [facility] mg/dL mg/dL Hospital L ab (Internal) : [address] t ? ? S ? Alp 65 U/L 46-[address] [facility] try U/L Hospital L ab (Internal) : [address] ? ? S ? Alt 36 U/L 16-63 U/L [facility] (S[facility] Hospital L [facility] (Internal) : [address] ? ? S ? Ast 15 U/L 15-37 U/L [facility] ([facility]) Hospital L [facility] (Internal) : [address] Allergies Code Code System Name Reaction Severity Onset 804132 RxNorm Bactrim Myalgias (Muscle Severe ? Pain) [...] Notes: Repeat in 7 years per path [id number]: severe colitis of descending colon with biopsy pathology consistent with ischemic event. Suspected infectious in etiology 06/13/2008 Lesion Excision Information not avai lable Notes: right lower extremity abscess 06/12/2006 Hernia Repair Inguinal Information not a vailable Vaccine List Vaccine Type COVID-19 vaccine, vector-nr, [id number], PF , 0.5 mL ([employer]) 10/06/2020 influenza, high-dose, quadrivalent 03/04/2020?0.7 mL influenza, [...] Yes walking or climbing stairs?? Past Encounters 07/23/2021 Degeneration of Lumbar Intervertebral Di sc; Hyperlipidemia; Insomnia; Type 2 Diabetes Mellitus without Complication; Hypertensive Disorder; Active or Passive Immunization; Administration of Influenza Vaccine; Influenza Vaccine Needed Faisal Brandt MD: [address] [place] [phone], Ph. 06/22/2021 Type 2 Diabetes Mellitus without Complic ation; Hypertensive Disorder; Fatigue; Cervical Radiculopathy; Peripheral Vascular Disease Faisal Brandt MD: [address] [place] [address], Ph. History of Present Illness ? Diabetes F/U_ Reported By: Patient HPI: Review finger sticks: fastin . Context: seeing eye doctor regularly, checking feet reg ularly, not missing doses of medications, no side effects from medication s. Associated Symptoms: no weight gain, no dizziness, no headaches, no increased thirst, no increased appetite ? Hypertension F/U Reported By: Patient HPI: Medications: taking medicati ons as directed, no side effects from medication. Lifestyle: limit ing/avoiding salt, not exercising regularly. Associated Symptoms: no ligh theadedness, no palpitations, no edema, no calf pain with exertion, no headache, dizziness, chest pain, shortness of breath Note: <div>07/23/2021- PT states [facility] prescribed 300mg gabapentin, would PT referral Daughter Elis would like to be on phone for apt today phone number is [phone] </div><div>
</div><div>06/22/21: Follow up HTN. Last BP in office 100/58. Also here for disability paperwork. Patient is asking if he should have a 2nd vaccine for shingles. Patient daughter Elis is here with patient. Patient is taking his metformin at the same time daughter wanted to know if this is okay. Patient states his legs are very weak. Patient states that tomaurice's visit is also supposed to be to discuss surgery.</div><div>
</div><div>05/18/21-Pt states he is very weak from his waist down, Pt breathing rapid just from walk to room, Pt states he is down to just skin and bones. Pt states he can hardly walk</div><div>04/26/21 Patient reports taking no medications, feeling terrible from my waist to my ankles.</div><div>Patient was discharged from [facility] 04/14 for T2DM uncontrolled, h yponatremia,spinal stenosis.</div><div>Advised a fu CT lungs for nodules, fu with spine center gof multi-level disc degeneration, 04/21 consult with general surgeon for weight loss.</div> Review of Systems ? Notes: <p>Review of systems as prev iously described and otherwise negative for 10 organ systems</p> Physical Exam ? Notes: <p>General: Alert. Not in ac nenana distress.</p><p>HEENT: NCAT. No Nystagmus. Pupils equal, round and reac tive.</p><p>Neck: Without adenopathy or thyromegaly, Trachea midline .</p><p>Cardiopulmonary: No cardiopulmonary distress</p><p>Abdomen: Soft , nondistended, nontender.</p><p>Peripheral Vascular: No edema.</p><p>Ne urologic: Awake alert and oriented. Cranial nerves II-XII intact. EOMI.</p><p>M usculoskeletal: Normal range of motion.</p><p>Skin: Normal M oisture. Warm.</p><p>Lymphatic: No appreciated adenopathy</p><p>Psychiatric : Appropriate</p>
--- NOTE | 2021-08-27 11:00 | DI.CT_ITS ---
Exam(s) CT HEAD WO EXAM: CT HEAD WO CLINICAL HISTORY: Disorientation. TECHNIQUE: Imaging Protocol: Axial computed tomography images with coronal and sagittal reformatted images were created and reviewed COMPARISON: No exams were available for comparison FINDINGS: The ventricular system is normal in appearance. No evidence of acute intracranial hemorrhage, mass effect, or midline shift. The orbital structures are unremarkable. The temporal bone structures appear intact. Calvarium: Normal. Visualized Paranasal sinuses/Mastoids: Clear. IMPRESSION: Normal cranial CT. RADIATION DOSE DELIVERED: 740.64mGy.cm Total DLP 740.64mGy.cm Total DLP !Error CTDIvol DATA REPOSITORY: All CT scans at this facility are submitted to the National Radiology Data Registry (NRDR) Dose Index Registry (DIR) with the [employer] (A[employer]). RADIATION OPTIMIZATION: All CT scans at this facility use at least one of these dose optimization te chniques: automated exposure control; mA and/or kV adjustment per patient size (includes targeted exa ms where dose is matched to clinical indication); or iterative reconstruction.
--- NOTE | 2021-08-27 11:15 | RT.EKG_ITS ---
APPROVED REPORT Exam: Resting ECG Reason for Exam: pain Patient Location: E HR:82 bpm ECG Measurements Heart Rate 82 AXIS MT 128 P 70 QRSd 94 QRS 77 QT 383 T 72 QTc 446 Conclusion Sinus rhythm...normal P axis, V-rate 60- 99 normal sinus rhtyhm, normal axism, normal intervals, non ischemic
[2021-08-27 11:22] LABS: Lactate 1.5 mmol/L (0.6-1.4)
[2021-08-27 11:24] LABS: Abs Immature Grans 0.01 10^3/uL (0.0-0.06); Absolute Basophil Count 0.01 10^3/uL (0.0-0.2); Absolute Eosinophil Count 0.14 10^3/uL (0.0-0.7); Absolute Lymphocyte Count 1.76 10^3/uL (1.2-3.4); Absolute Monocyte Count 0.65 10^3/uL (0.1-0.8); Absolute Neutrophil Count 3.51 10^3/uL (1.2-6.7); Basophils % 0.2; Eosinophils % 2.3; HCT 43.4 % (40.0-50.0); HGB 14.8 g/dL (13.5-17.5); Immature Grans % 0.2; Lymphocytes % 28.9; MCH 29.8 pg (27.0-33.0); MCHC 34.1 % (32.0-36.0); MCV 87.5 fL (80-95); MPV 9.5 fL (8.0-11.0); Monocytes % 10.7; Neutrophils % 57.7; Nucleated RBC 0 %; Platelet Count 259 10^3/uL (130-400); RBC 4.96 10^6/uL (4.36-5.78); RDW 12.2 % (11.8-14.1); RDW-SD 39.4 fL; WBC 6.08 10^3/uL (4.4-10.8)
[2021-08-27] MEDS: Normal Saline 1,000 ML 1000 ML IV (11:30)
[2021-08-27 11:45] LABS: ALT 23 U/L (16-63); AST 11 U/L (15-37); Albumin 3.9 g/dL (3.4-5.0); Alkaline Phosphatase 64 U/L (46-116); Anion Gap 7.5 mmol/L (3-11); BUN 21 mg/dL (7-18); Bilirubin, Total 0.3 mg/dL (0.2-1.0); CO2 28.5 mmol/L (21.0-32.0); CREATININE 0.8 mg/dL (0.70-1.30); Calcium 9.5 mg/dL (8.5-10.1); Chloride 100 mmol/L (98-107); Glucose 307 mg/dL (74-106); Lipase 65 U/L (73-393); Potassium 4.3 mmol/L (3.5-5.1); Sodium 136 mmol/L (136-145)
[2021-08-27 12:09] LABS: Bilirubin Negative (Negative); Blood Negative (Negative); Clarity Clear (Clear); Glucose >=1000 mg/dL (Negative); Ketones Negative (Negative); Leukocyte Esterase Negative (Negative); Nitrite Negative (Negative); Urobilinogen 0.2 EU/dL (Up TO 0.2); pH 6.5 (5-8)
[2021-08-27] MEDS: Omnipaque 350 MG/ML 100 ML BTL IJ (12:41)
--- NOTE | 2021-08-27 12:42 | DI.CT_ITS ---
Exam(s) CT CHEST/ABD/PEL W EXAM: CT CHEST/ABD/PEL W CLINICAL HISTORY: pain, 60 lb weight loss TECHNIQUE: CT examination of the chest, abdomen, and pelvis was performed with intravenous infusion of 100 cc of Omnipaque 350. COMPARISON: No exams were available for comparison FINDINGS: The lungs are clear. There is no pleural effusion seen. There is no mediastinal or hilar adenopathy. Pulmonary arteries are unremarkable with no evidence of pulmonary embolic disease. Thoracic aorta and major branches appear intact with no evidence of aneurysm or dissection. No bony abnormality seen in the thorax. The liver is normal appearance. Gallbladder and bile ducts are CT normal. No abnormality seen involving the spleen. Pancreas appears intact. The adrenals are unremarkable in appearance. The kidneys show no evidence of hydronephrosis or nephr olithiasis. Small incidental bilateral renal cysts noted. Probable left cortical renal scarring not ed. Abdominal aorta and major visceral branches appear intact. No significant abdominal wall hernia seen. No significant abdominal or pelvic adenopathy. No focal bowel pathology. No evidence of appendicitis or diverticulitis. IMPRESSION: No evidence of acute process.. RADIATION DOSE DELIVERED: 948.56mGy.cm Total DLP 948.56mGy.cm Total DLP !Error CTDIvol
[2021-08-27 13:01] LABS: Troponin I < 50 ng/L (<or=60)
== END 2021-08-27 13:57 | disposition home or self-care (01) ==
PROVIDERS: Emergency Provider Physician Assistant; PCP General Practice
DX: R63.4 Abnormal weight loss (principal); R53.1 Weakness; G89.29 Other chronic pain; R07.9 Chest pain, unspecified; R10.9 Unspecified abdominal pain; M54.9 Dorsalgia, unspecified; F11.90 Opioid use, unspecified, uncomplicated; R41.0 Disorientation, unspecified
CPT/HCPCS: 36416; 74177; 80053; 82962; 83690; 93005; 96360; 99285; 70450; 71260; 81003; 83605; 84484; 85025; 93010; 99284; J3490

== ENCOUNTER 2022-05-02 10:18 | Emergency (ER) | payer MEDICARE, SELFPAY ==
[2022-05-02 10:27] VITALS: BP 127/80; PULSE 64; RESP 18; TEMP 36.9; O2SAT 97
--- NOTE | 2022-05-02 10:30 | RT.EKG_ITS ---
APPROVED REPORT Exam: Resting ECG Reason for Exam: chest pain Patient Location: E HR:76 bpm ECG Measurements Heart Rate 76 AXIS CA 125 P 60 QRSd 94 QRS 61 QT 371 T 39 QTc 417 Conclusion Sinus arrhythmia...V-rate 55- 92, variation>10% Anteroseptal infarct, old...Q >40mS, V1-V2 no STEMI, non-diagnostic EKG
[2022-05-02 11:03] VITALS: RESP 18
--- NOTE | 2022-05-02 12:34 | ED.GENADUL_ITS ---
Discharge Plan Disposition Patient Disposition: Home Condition: Stable Discharge Details Clinical Impression: Chronic pain, Breast mass, right Primary Care Provider: Oneal Guaman ED Provider: Landy Fuentes Home Meds and New Rx's Prescriptions: Continued atorvastatin 40 mg tablet 40 mg PO DAILY metformin 1,000 mg tablet 1,000 mg PO BID omeprazole 40 mg capsule,delayed release(DR/EC) 40 mg PO DAILY .insulin SCL gabapentin 300 mg capsule 600 mg PO TID Qty: 180 3RF Rx Instructions: Start 300mg TID and slowly increase by 300mg every week to 600mg TID lisinopril 20 mg tablet 20 mg PO DAILY aspirin [Adult Low Dose Aspirin] 81 mg tablet,delayed release (DR/EC) 81 mg PO DAILY cholecalciferol (vitamin D3) [Vitamin D3] 25 mcg (1,000 unit) Capsule 25 mcg PO DAILY Discharge Instructions Instructions: Chronic Pain (ED), Breast Mass (ED) Additional Instructions: Please return immediately to the emergency department if you develop any new or worsening symptoms, if your condition does not improve as expected, or if you become otherwise concerned. It is extremely important that you attend your scheduled appointment with your primary care doctor, Dr. Brandt, tomorrow at 10:40. Referrals: Faisal Brandt [ NON-[facility] STAFF PHYSICIAN] - Discharge Data Discharge Date/Time-TO BE ENTERED AT DEPARTURE: 05/02/22 14:03 Medical Decision Making Concern for breast mass of unknown etiology in setting of recent weight loss, chronic pain of unclear etiology, unchanged over past year, other. Exam/history at this time is not consistent with ACS, pulmonary embolism, acute aortic pathology, other acute emergent medical process. Plan for screening labs, chest x-ray to facilitate outpatient follow-up. Labs reviewed, WBC 5.97, anion gap 6.9, creatinine 0.9. Chest x-ray negative per radiology. I contacted patient's PCPs office, patient's PCP not available. I discussed my concerns with nursing staff, including my concern that patient needs outpatient right breast ultrasound and further evaluation/treatment. She stated that she will relay this information to Dr. Brandt, and schedule patient with appointment for 1040 tomorrow in follow-up. I had a discussion with Patient regarding return to emergency department precautions, home care, and importance of outpatient follow-up tomorrow with Dr. Rikki. Pt verbalizes understanding of the plan and is amenable. Patient discharged to home with clear plan for outpatient follow-up. All questions were answered. Disposition decision was made weighing the risks and benefits of hospitalization versus outpatient treatment, the risk for further decompensation, and the patient's wishes. Medical Records Medical records reviewed: Yes I reviewed the patient's medical records. Imaging Data Radiologic Study: Attestation: I personally reviewed and interpreted this imaging study as follows: Radiologist's impression: EXAM:? XR CHEST 2V PA ? LATERAL CLINICAL HISTORY:? right breast mass/pain TECHNIQUE:? 2D digital imaging was performed. COMPARISON:? No exams were available for comparison FINDINGS: HEART: Normal size.? Aorta: PULMONARY VASCULATURE: Normal. LUNGS: Clear. ? PLEURAL SPACE: No pleural effusion or pneumothorax. BONE:Unremarkable for age.? IMPRESSION: No acute abnormality.? Lab Data Lab results reviewed: Yes I reviewed the patient's lab results. Labs: Laboratory Tests Range/Units 05/02/22 05/02/22 12:42 12:42 WBC (4.4-10.8) 10^3/uL 5.97 RBC (4.36-5.78) 10^6/uL 5.19 Hgb (13.5-17.5) g/dL 15.0 Hct (40.0-50.0) % 45.5 MCV (80-95) fL 88 MCH (27.0-33.0) pg 28.9 MCHC (32.0-36.0) % 33.0 RDW (11.8-14.1) % 14.1 Plt Count (130-400) 10^3/uL 217 MPV (8.0-11.0) fL 9.5 Immature Gran % 0.5 Neutrophils % 55.3 Lymphocytes % 32.2 Monocytes % 9.2 Eosinophils % 2.5 Basophils % 0.3 Nucleated RBC % (0.0-0.3) % 0.0 Absolute Neutrophils (1.2-6.7) 10^3/uL 3.30 Absolute Lymphocytes (1.2-3.4) 10^3/uL 1.92 Absolute Monocytes (0.1-0.8) 10^3/uL 0.55 Absolute Eosinophils (0.0-0.7) 10^3/uL 0.15 Absolute Basophils (0.0-0.2) 10^3/uL 0.02 Sodium (136-145) mmol/L 138 Potassium (3.5-5.1) mmol/L 4.1 Chloride (98-107) mmol/L 101 Carbon Dioxide (21.0-32.0) mmol/L 30.1 Anion Gap (3-11) mmol/L 6.9 BUN (7-18) mg/dL 18 Creatinine (0.70-1.30) mg/dL 0.9 Est GFR (CKD-EPI 2020) (mL/min/1.73m2) 93.03 Glucose (74-106) mg/dL 124 H Calcium (8.5-10.1) mg/dL 9.2 Total Bilirubin (0.2-1.0) mg/dL 0.3 AST (15-37) U/L 14 L ALT (16-63) U/L 17 Alkaline Phosphatase (46-116) U/L 72 Total Protein (6.4-8.2) g/dL 7.3 Albumin (3.4-5.0) g/dL 3.9 Sign Out No HPI General Mode of arrival: ambulatory . Date/Time Provider Initiated Documentation: 05/02/22 12:31 . Limitations to Documentation: no limitations . Information obtained by: patient, RN notes reviewed and old records reviewed . HPI Narrative: Andre Ruff is a 66-year-old man with history of GERD, hyperlipidemia, diabetes, hypertension, herpes zoster in the past presenting to emergency department with left-sided pain. Patient reports that he had shingles appro ximately 1 year ago. He reports that rash was on his left abdomen and also on his left leg. Patient reports that since that time he has had pain similar to the pain of his shingles episode in the left abdomen, left mid back, and left leg. He reports that this pain has been constant and ongoing for 1 year. He also reports some mild pain in his right nipple that has been ongoing and unchanged for approximately 1 year as well. 6 he denies any other pain, denies any recent illness. Patient reports that he presented to the emergency department today because he has been seeing his PCP, Dr. Brandt at [facility], for the symptoms and nothing he is doing is making anything better. He denies any recent change in any of his symptoms. Patient reports that 1 year ago he weighed 175 pounds. He reports that he lost approximately 60 pounds, and was told repeatedly by physicians that he needed to eat more. Patient reports that he has been eating very large parties of food all day long and has gained back some weight, and states that he now weighs approximately 145 pounds. Patient reports that he is weighed this amount for several months. He denies any other pain, fever, cough, shortness of breath, vomiting, diarrhea, rash. Reports normal appetite. Per record review from neurology visit with Dr. Gleason 10/31: Mr. Ruff is a 66 year-old, right-handed man with: #1. Chronic diffuse pain.? He has poorly described diffuse pain all over.? Unclear etiology.? His neurological exam was significant for an absent L achilles reflex and mild proximal leg weakness. NCS/EMG were performed and consistent with a severe axonal sensorimotor neuropathy.? There was also evidence of a L S1 radiculopathy. Thus, he has several issues: -Peripheral neuropathy.? Likely due to his diabetes.? However, I recommend checking B12, TSH, and SPEP if not done so in the last 1 year.? I expect that this is the cause of his numbness.? Unclear how much is contributing to his pain. -L S1 radicular changes on EMG.? Currently he does not have symptoms consistent with a radiculopathy, though this does match up with his previous neuroimaging.? He has been referred to [facility] [place] for LESI.? Unclear if this would benefit him.? This finding would certainly not explain the bulk of his pain. -Memory loss and anxiety.? He presents with signs and symptoms concerning for dementia. Daughter reports that he has been tested for dementia and does not have it, however, it does not sound like he has had any cognitive testing.? He was not referred for this problem, but I would recommend further work-up down this pathway as this may be contributing to inability to describe pain, cope with pain, etc.? He is certainly not able to understand any medication recommendations or take his medications reliably.? -Poorly described diffuse pain. Consider ESR/CRP/w/up for PMR if not already done so. Given above, we discussed re-starting gabapentin.? He will start 300mg BID and then increase 300mg weekly to 600mg TID.? ADRs discussed.? Current CrCl is 61mL/min.? Based on this max dose would be 1800mg/day.? Thus, if no improvement after 4-6 weeks on this dose, would than convert to pregabalin.? Can consider addition of duloxetine, venlafaxine. ? He would like to follow-up as needed but he is more than welcome to return for cognitive evaluation, etc. Related Data Home Medications Medication Instructions Recorded Confirmed aspirin 81 mg tablet,delayed 81 mg PO DAILY 07/28/21 10/11/21 release (Adult Low Dose Aspirin) lisinopril 20 mg tablet 20 mg PO DAILY 07/28/21 10/11/21 cholecalciferol (vitamin D3) 25 25 mcg PO DAILY 08/27/21 10/11/21 mcg (1,000 unit) capsule (Vitamin D3) .insulin SCL 10/11/21 10/11/21 atorvastatin 40 mg tablet 40 mg PO DAILY 10/11/21 10/11/21 gabapentin 300 mg capsule 600 mg PO TID #180 caps 10/11/21 10/11/21 metformin 1,000 mg tablet 1,000 mg PO BID 10/11/21 10/11/21 omeprazole 40 mg capsule,delayed 40 mg PO DAILY 10/11/21 10/11/21 release Previous Rx's Medication Instructions Recorded gabapentin 300 mg capsule 600 mg PO TID #180 caps 10/11/21 Allergies Allergy/AdvReac Type Severity Reaction Status Date / Time sulfamethoxazole Allergy Verified 10/11/21 08:15 [From Bactrim] trimethoprim [From Bactrim] Allergy Verified 10/11/21 08:15 General Stated Complaint: GenMedical FROILAN: 3 Review of Systems Narrative: Constitutional: denies fevers, reports weight loss Eyes: denies eye pain ENT: denies ear pain, dental pain, sore throat Cardiovascular: denies chest pain, edema Respiratory: denies SOB, cough GI: denies vomiting, diarrhea, reports chronic left abdominal pain : denies flank pain MSK: denies neck pain, arthralgias, myalgias, reports chronic left back pain, chronic left leg pain Skin: denies rash, reports pain around right nipple Neuro: denies headaches, numbness, weakness PFSH All Active Problems Chronic pain (Chronic) Breast mass, right (Acute) Memory loss (Acute) Left lumbosacral radiculopathy (Acute) Chronic pain (Chronic) Diabetic neuropathy (Acute) Renal mass (Acute) GERD (gastroesophageal reflux disease) (Chronic) Medical History Herpes zoster Hyperlipidemia Hypertension Poorly controlled diabetes mellitus Tobacco dependence Surgical History H/O hernia repair Family History Other Diabetes Hypertension Social History Smoking/Tobacco Use Status: Current every day Tobacco Type: cigarettes Tobacco: How many years used: 50 Smoking risk assessment performed?: Yes Alcohol Intake: former Drug use: Never Substance use type: does not use Household members: none Number of Children: 7 current occupation: Retired Do you feel safe at home: Yes Do you feel safe in your relationship?: Yes Exam Narrative Exam Narrative: Constitutional: well and [id number], pleasant, conversing normally HENT: head atraumatic/normocephalic/normal inspection, mucous membranes moist Eyes: conjunctiva normal, sclera normal, pupils 3mm b/l Neck: no stridor, normal ROM, trachea midline Chest: Swelling/asymmetry of the right nipple area compared to the left, approximately 2 x 2 centimeter palpable mass underneath the right nipple, mildly tender to palpation, no fluctuance, no overlying skin changes, otherwise normal inspection of the chest Resp: normal work of breathing, speaking in full sentences Cardio: normal rate, normal rhythm GI: abdomen soft, non-tender, non-distended, normal inspection Back: normal inspection, no rash, nontender to palpation Skin: warm, dry, normal color, no rash Neuro: alert, not altered, grossly non-focal, normal tone, normal gait Ext: no edema, no tenderness palpation of the left thigh or lower leg, full painless range of motion left hip and left knee, walking about the emergency department without issue Psych: normal mood, normal affect, normal behavior Course Vital Signs Vital signs: Vital Signs Temperature 36.9 C 05/02/22 10:27 Pulse 64 05/02/22 10:27 Respiratory Rate 18 05/02/22 10:27 Blood Pressure 127/80 05/02/22 10:27 Pulse Oximetry 97 05/02/22 10:27 Temperature 36.9 C 05/02/22 10:27 Pulse 64 05/02/22 10:27 Respiratory Rate 18 05/02/22 11:03 Respiratory Effort Non-Labored 05/02/22 11:04 Respiratory Depth Normal 05/02/22 11:03 Respiratory Pattern Normal 05/02/22 11:03 Blood Pressure 127/80 05/02/22 10:27 Blood Pressure Position Sitting 05/02/22 10:27 Pulse Oximetry 97 05/02/22 10:27 Oxygen Delivery Method Room Air 05/02/22 10:27 Oxygen Flow Rate 0 05/02/22 10:27
[2022-05-02 12:49] LABS: Abs Immature Grans 0.03 10^3/uL (0.0-0.06); Absolute Basophil Count 0.02 10^3/uL (0.0-0.2); Absolute Eosinophil Count 0.15 10^3/uL (0.0-0.7); Absolute Lymphocyte Count 1.92 10^3/uL (1.2-3.4); Absolute Monocyte Count 0.55 10^3/uL (0.1-0.8); Basophils % 0.3; Eosinophils % 2.5; HCT 45.5 % (40.0-50.0); Immature Grans % 0.5; Lymphocytes % 32.2; MCH 28.9 pg (27.0-33.0); MCV 88 fL (80-95); MPV 9.5 fL (8.0-11.0); Monocytes % 9.2; Neutrophils % 55.3; Platelet Count 217 10^3/uL (130-400); RBC 5.19 10^6/uL (4.36-5.78); RDW 14.1 % (11.8-14.1); RDW-SD 45.7 fL; WBC 5.97 10^3/uL (4.4-10.8)
--- NOTE | 2022-05-02 12:53 | DI.RAD_ITS ---
Exam(s) XR CHEST 2V PA LATERAL EXAM: XR CHEST 2V PA LATERAL CLINICAL HISTORY: right breast mass/pain TECHNIQUE: 2D digital imaging was performed. COMPARISON: No exams were available for comparison FINDINGS: HEART: Normal size. Aorta: PULMONARY VASCULATURE: Normal. LUNGS: Clear. PLEURAL SPACE: No pleural effusion or pneumothorax. BONE:Unremarkable for age. IMPRESSION: No acute abnormality. DATA REPOSITORY: RADIATION DOSE DELIVERED:
[2022-05-02 13:14] LABS: ALT 17 U/L (16-63); AST 14 U/L (15-37); Albumin 3.9 g/dL (3.4-5.0); Alkaline Phosphatase 72 U/L (46-116); Anion Gap 6.9 mmol/L (3-11); BUN 18 mg/dL (7-18); Bilirubin, Total 0.3 mg/dL (0.2-1.0); CO2 30.1 mmol/L (21.0-32.0); CREATININE 0.9 mg/dL (0.70-1.30); Calcium 9.2 mg/dL (8.5-10.1); Chloride 101 mmol/L (98-107); Estimated GFR 93.03 (mL/min/1.73m2); Glucose 124 mg/dL (74-106); Potassium 4.1 mmol/L (3.5-5.1); Sodium 138 mmol/L (136-145); Total Protein 7.3 g/dL (6.4-8.2)
== END 2022-05-02 14:03 | disposition home or self-care (01) ==
PROVIDERS: Emergency Provider Student in an Organized Health Care Education/Training Program; PCP General Practice
DX: N63.10 Unspecified lump in the right breast, unspecified quadrant (principal); G89.29 Other chronic pain; E78.5 Hyperlipidemia, unspecified; E11.9 Type 2 diabetes mellitus without complications; I10 Essential (primary) hypertension
CPT/HCPCS: 36415; 80053; 93005; 99284; 71046; 85025; 93010; 99285